=== PATIENT | male | born 1955 | race Caucasian/White ===

== ENCOUNTER → 2016-12-11 | Outpatient (CLI) | payer OTHER, MEDICAID | LOC: FIMAGING 14:46 | PROVIDERS: ATTEND Physician Assistant | DX: Z09 Encounter for follow-up examination after completed treatment for conditions other than malignant neoplasm (principal); Z98.1 Arthrodesis status ==

== ENCOUNTER → 2017-01-29 | Outpatient (CLI) | payer OTHER, MEDICAID | LOC: FLAB 13:09 | PROVIDERS: ATTEND Neurological Surgery | DX: M54.5 Low back pain (principal); K59.00 Constipation, unspecified; Z98.1 Arthrodesis status ==

== ENCOUNTER → 2017-02-07 | Outpatient (CLI) | payer OTHER, MEDICAID | LOC: FIMAGING 19:51 | PROVIDERS: ATTEND Neurological Surgery | DX: M43.16 Spondylolisthesis, lumbar region (principal); Z98.1 Arthrodesis status ==

== ENCOUNTER → 2017-03-20 | Outpatient (CLI) | payer OTHER, MEDICAID | LOC: FIMAGING 11:08 | PROVIDERS: ATTEND Physician Assistant | DX: M54.5 Low back pain (principal); Z98.1 Arthrodesis status; N20.0 Calculus of kidney ==

== ENCOUNTER → 2017-04-17 | Outpatient (CLI) | payer OTHER, MEDICAID | LOC: FIMAGING 13:00 | PROVIDERS: ATTEND Specialist | DX: N20.0 Calculus of kidney (principal); K59.00 Constipation, unspecified; Z90.49 Acquired absence of other specified parts of digestive tract; Z98.1 Arthrodesis status ==

== ENCOUNTER → 2017-04-23 | Outpatient (CLI) | payer OTHER, MEDICAID ==
[~2017-04-23] MED LIST: ceFAZolin 2 GM/DEXTROSE 100 ML IV ONE
--- NOTE | 2017-04-23 13:01 | PDHPUP ---
History & Physical Update H&P update statement: This history and physical update is based on an assessment of the patient which was completed after admission or registration (within 24 hours), but prior to the surgery/procedure. H&P update: H&P reviewed & patient examined, no change in patient's condition since H&P completed
== END ==
LOC: FIMAGING 09:40
PROVIDERS: ATTEND Specialist
DX: N20.0 Calculus of kidney (principal); K59.00 Constipation, unspecified

== ENCOUNTER → 2017-04-24 | Day surgery (SDC) | payer OTHER, MEDICAID ==
--- NOTE | 2017-04-23 16:16 | GHP ---
[f rep st] PREOP HISTORY AND PHYSICAL ADMISSION DIAGNOSES: Right-sided ureteral calculus and nephrolithiasis, left- sided nephrolithiasis, left-sided flank pain, abdominal. HISTORY OF PRESENT ILLNESS: This is a 60-year-old gentleman who has had a history of stones. At the present time, he is admitted for right ureteroscopy for a right ureteral calculus and renal stones noted, and possible left ureteroscopy if there is a stone noted on retrograde. He had a CT scan in February of 2017, showed a possible UVJ stone, bilateral renal stones, and an 8 mm right mid pole stone with Hounsfield unit of 854. PAST MEDICAL HISTORY: Aortic aneurysm, bone loss, degenerative joint disease, deep venous thrombosis, gastric reflux, HIV positive, hypergonadism, hyperlipidemia, nephrolithiasis, renal cell tumor, osteoporosis, migraines, lymphadenopathy, pyelonephritis, vertebral injury, urinary retention. PAST SURGICAL HISTORY: Angioplasty, appendectomy, colon surgery, cyst removal, gallbladder, knee, lipoma, partial nephrectomy, polyneuropathy, tonsillectomy, and tympanoplasty. MEDICATIONS: Include Androderm, Epzicom, Exalgo, Flomax, , Lidoderm patch, Lyrica, oxycodone. ALLERGIES: Demerol, gabapentin, meperidine. FAMILY HISTORY: Heart disease. SOCIAL HISTORY: Nondrinker, nonsmoker. . REVIEW OF SYSTEMS: Negative cardiac, respiratory, GI. PHYSICAL EXAMINATION: VITAL SIGNS: Stable. CHEST: Clear. HEART: Regular rate and rhythm. ABDOMEN: Normal. No organomegaly, rebound, or guarding. EXTREMITIES: Lower extremities are normal. PLAN: He is admitted for the above procedures. /[id number]/MODL MTDD
[~2017-04-24] MED LIST changes: +ALBUTEROL 3 ML DEYVIAL IH PRN; +HYDROmorphONE/DILAUDID 1 MG/ML SYR IVP PRN; +LR 1,000 ML IV ONE; +MIDAZOLAM 2 MG/2 ML VIAL IVP ONE; +NALOXONE HCL 0.4 MG/ML INJ IVP PRN; +ONDANSETRON 4 MG/2 ML VIAL IVP PRN; +OXYCODONE/APAP 5/325 TAB PO PRN; +PROMETHAZINE HCL 25 MG/ML INJ IVP PRN; +PROPOFOL 200 MG/20 ML VIAL ONE; +fentaNYL 100 MCG/2 ML INJ ONE
--- NOTE | 2017-04-24 12:49 | PDANEPAE ---
ANE History of Present Illness ureteral stone ANE Past Medical History - Cardiovascular History Hx Hypertension: No Hx Arrhythmias: No Hx Chest Pain: No Hx Coronary Artery / Peripheral Vascular Disease: No Hx CHF / Valvular Disease: No Hx Palpitations: No Cardiovascular History Comment: aortic aneurysm-4.3 cm - Pulmonary History Hx COPD: No Hx Asthma/Reactive Airway Disease: No Hx Recent Upper Respiratory Infection: No Hx Oxygen in Use at Home: Yes O2 in Use at Home (L/minute): 2-3l at noc Hx Sleep Apnea: Yes Sleep Apnea Screening Result - Last Documented: Positive Pulmonary History Comment: garfield positive - Neurologic History Hx Cerebrovascular Accident: No Hx Seizures: No Hx Dementia: No Neurologic History Comment: traumatic brain injury x 4. migranes. polyneuropathy-mid calf-feet. back injury c2-7, L 3-4-5 - Endocrine History Hx Diabetes: No - Renal History Hx Renal Disorders: Yes Renal History Comment: kidney cancer. hx of kidney stones - Liver History Hx Hepatic Disorders: No - Neurological & Psychiatric Hx Hx Neurological and Psychiatric Disorders: Yes Neurological / Psychiatric History Comment: anxiety - Cancer History Hx Cancer: Yes Cancer History Comment: kidney cancer, partial nephrectomy - Congenital Disorder History Hx Congenital Disorders: No - GI History Hx Gastrointestinal Disorders: No Gastrointestinal History Comment: colon polyp - Other Health History Other Health History: wears glasses. hx of falls - Chronic Pain History Chronic Pain: No - Surgical History Prior Surgeries: 10/09/16 l4-5, s1 TLIF with Dr. Aragon. epidural injection x4 lumbar & 2 cervical. partial nephrectomy. bilat knee arthroscopy. cholecystectomy. appendectomy. T&A. pilonidal cystectomy. cauldal rectal surgery ANE Review of Systems - Exercise capacity METS (RN): 4 METS ANE Patient History - Allergies Allergies/Adverse Reactions: meperidine HCl [From Demerol] Allergy (Intermediate, Verified 09/10/16 14:25) Vomiting adhesive tape [Adhesive Tape] Allergy (Verified 09/10/16 14:25) BLISTERS Tegaderm Allergy (Intermediate, Uncoded 08/05/16 14:54) Blisters - Home Medications Home Medications: Abacavir Sulfate/Lamivudine [Epzicom Tablet] 1 each PO DAILY 09/05/16 [Last Taken 10/09/16 07:30] Atorvastatin Calcium [Lipitor 10 mg (*)] 10 mg PO DAILY 09/05/16 [Last Taken ] Cyclobenzaprine [Flexeril 10 MG (*)] 10 - 20 mg PO DAILY PRN 09/05/16 [Last Taken 10/09/16 07:30] Diazepam 5 mg PO DAILY 09/05/16 [Last Taken 10/09/16] Gabapentin [Neurontin 300 MG (*)] 900 mg PO HS 09/05/16 [Last Taken 10/08/16 22: 00] Gabapentin [Neurontin] 600 mg PO BID@08,12 09/05/16 [Last Taken 10/09/16 07:30] Raltegravir [Isentress] 400 mg PO BID 09/05/16 [Last Taken 10/09/16 07:30] Tamsulosin HCl [Flomax 0.4 MG (*)] 0.4 mg PO DAILY 09/05/16 [Last Taken 07:30] methYLPHENIDATE HCL [Ritalin 10mg (*)] 10 mg PO DAILY 09/05/16 [Last Taken 10/07] - NPO status NPO Since - Liquids (Date): 04/23/17 NPO Since - Liquids (Time): 01:00 NPO Since - Solids (Date): 04/23/17 NPO Since - Solids (Time): 01:00 - Anes Hx Anes Hx: no prior problems - Smoking Hx Smoking Status: Never smoked - Family Anes Hx Family Hx Anesthesia Complications: none known ANE Labs/Vital Signs - Vital Signs Blood Pressure: 120/87 Heart Rate: 99 Respiratory Rate: 18 O2 Sat (%): 89 Height: 187.96 cm Weight: 102.512 kg ANE Physical Exam - Airway Neck exam: FROM, decreased ROM Mallampati Score: Class 1 Mouth exam: normal dental/mouth exam - Pulmonary Pulmonary: no respiratory distress - Cardiovascular Cardiovascular: regular rate and rhythym - ASA Status ASA Status: III ANE Anesthesia Plan Anesthesia Plan: general endotracheal anesthesia
--- NOTE | 2017-04-24 14:24 | POSTOPPROG ---
Post Op Note Date of Operation: 04/24/17 Surgeon: Brenden Arroyo Anesthesia: LMA Pre-op Diagnosis: rt ureteral stone, rt nephrolithiasis, left nephrolithiasis Post-op Diagnosis: same--DICTATED Indication: STONES Procedure: rt ureteroscopy ureteral stone, rt ureteroscopy renal stone, left ureterosc Findings: bilateral stones Inf/Abcess present in the surg proc area at time of surgery?: No EBL: Minimal Complications: none Drains: Other (bilateral stents)
--- NOTE | 2017-04-24 14:45 | POSTANESTH ---
Post Anesthetic Evaluation Cardiovascular Status: Normal, Stable Respiratory Status: Normal, Stable Level of Consciousness/Mental Status: Can Participate in Eval Pain Control: Adequate, Prn Tx Ordered Nausea/Vomiting Control: Adequate, Prn Tx Ordered Complications Possibly Related to Anesthesia: None Noted
[2017-04-24] MEDS: fentaNYL 100 MCG/2 ML INJ IVP PRN ×2 (15:15→15:31)
--- NOTE | 2017-04-24 15:19 | GOP ---
[f rep st] OPERATIVE REPORT DATE OF OPERATION: SURGEON: Brenden Arroyo MD PREOPERATIVE DIAGNOSIS: Right ureterolithiasis, right nephrolithiasis, left ureteral pain and left nephrolithiasis. POSTOPERATIVE DIAGNOSIS: PROCEDURE PERFORMED: Ureteroscopy with removal of right ureteral stone, ureteroscopy with laser lit hotripsy of right nephrolithiasis and laser lithotripsy ureteroscopically of left nephrolithiasis an d bilateral stent placement. Fluoroscopy was utilized with interpretation. FINDINGS: DESCRIPTION OF PROCEDURE: This gentleman underwent general anesthesia, prepped and draped in normal sterile fashion in dorsal lithotomy position. Urethra normal. Prostate normal. Bladder had no tao or, stones, or foreign bodies or diverticula. The retrograde revealed a distal ureteral stone and t hen the right lower pole calyceal stone, and I was able to pass a guidewire up beyond the stone and then extracted ureteroscopically the distal ureteral fragment. At that point, with the ureteral acc ess sheath, passed that up so I could pass the flexible scope up to the renal pelvis. He had nephro calcinosis in the renal papilla but he had 1 large stone in the lower pole calyx; it was fragmented and dusted. Because of the position, I could not really grasp any of the fragments to remove, so I p laced a 4.7 multi-length stent that curled in the renal pelvis and curled in the bladder. On extrac tion of the scope from the ureter and the renal pelvis, there was no perforation or damage to the ur eter. Then, at that point, the left retrograde ureteral pyelogram revealed left nephrolithiasis and it appeared there was no obvious ureteral stone, even though he was complaining of pain on that naomi e. So then I placed the ureteral access sheath over a 0.035 guidewire. Visualization revealed a st one in the left lower pole and he had some nephrocalcinosis in the renal papilla on the left side an d then the Holmium laser fragmented the stone into multiple pieces. The same thing as on the other side, could not really grasp the stones to extract them with a basket because of the position. At th at point, a 4.7 multi-length stent was curled in the renal pelvis, curled in the bladder. Bladder w as visualized and drained of all urine. Uro-Jet placed in the urethra and [place] catheter placed. He will have them pull his catheter and he will be discharged home to see me in the office in approxim ately 1 week for stent removal. /[id number]/MODL
[2017-04-24 16:38] VITALS: PULSE 85; TEMP 97.9
[2017-04-24 16:40] VITALS: BP 149/84; RESP 16; O2SAT 96
== END | disposition home or self-care (01) ==
LOC: FSGY 11:30
PROVIDERS: ATTEND Specialist
DX: N20.1 Calculus of ureter (principal); N20.0 Calculus of kidney; K21.9 Gastro-esophageal reflux disease without esophagitis; E78.5 Hyperlipidemia, unspecified; M81.0 Age-related osteoporosis without current pathological fracture; Z21 Asymptomatic human immunodeficiency virus [HIV] infection status
CPT/HCPCS: 52352; 52356; 76001; C1758; C1769; C1894; C2625; J0690; J2704; J3010

== ENCOUNTER 2017-04-25 02:45 | Emergency (ER) | payer OTHER, MEDICAID ==
[2017-04-25] MEDS ORDERED: LIDOCAINE 2% JELLY 20 ML (UROJECT) ONE (03:31)
--- NOTE | 2017-04-25 04:12 | EDPHY ---
H & P Stated Complaint: urinary retention post op Time Seen by Provider: 04/25/17 03:06 HPI/ROS: Chief Complaint: Urinary retention HPI: 61-year-old male who is status post ureteral stent placement for renal calculi yesterday. Patient states that he is able to urinate small amount after the procedure and once again but has been unable to urinate since. He attempted to place a 16 [place] catheter himself unsuccessfully. Is having worsening discomfort and difficulty urinating. Denies any fevers or chills. Some nausea no vomiting. ROS: 10 point Review of Systems is negative except as noted in the HPI. PMH: HIV, viral load undetectable Renal cancer status post resection, Lumbar spine fusion Renal calculi Social History: No smoking, no alcohol, no recreational drug use Family History: non-contributory Physical Exam: Gen: Awake, Alert, uncomfortable appearing HEENT: Nose: no rhinorrhea Eyes: PERRLA, EOMI Mouth: Moist mucosa Neck: Supple, no JVD Chest: No distress Heart: Normal pulses Abd: Soft, moderate lower abdominal tenderness, no guarding Ext: no edema, non-tender Skin: no rash Neuro: CN II-XII intact, Sensation grossly intact, Strength 5/5 in bilateral upper and lower extremities - Personal History Tetanus Vaccine Date: 2007 - Medical/Surgical History Hx Asthma: No Hx Chronic Respiratory Disease: No Hx Diabetes: No Hx Cardiac Disease: No Hx Renal Disease: No Hx Cirrhosis: No Hx Alcoholism: No Hx HIV/AIDS: Yes Hx Splenectomy or Spleen Trauma: No Other PMH: HIV-positive, chronic low back pain, obstructive sleep apnea, fibromyalgia, 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, osteoporosis, peripheral neuropathy, degenerative arthritis, hyperlipidemia, renal cell carcinoma status post partial nephrectomy, abdominal aortic aneurysm, multiple TBIs, MAYRA - Social History Smoking Status: Never smoked Constitutional: Initial Vital Signs Heart Rate 102 H 04/25/17 02:52 Respiratory Rate 20 04/25/17 02:52 Blood Pressure 132/67 H 04/25/17 02:52 O2 Sat (%) 91 L 04/25/17 02:52 O2 Delivery Mode Room Air Allergies/Adverse Reactions: meperidine HCl [From Demerol] Allergy (Intermediate, Verified 09/10/16 14:25) Vomiting adhesive tape [Adhesive Tape] Allergy (Verified 09/10/16 14:25) BLISTERS Tegaderm Allergy (Intermediate, Uncoded 08/05/16 14:54) Blisters Home Medications: Medication Instructions Recorded Abacavir Sulfate/Lamivudine 1 each PO DAILY 09/05/16 [Epzicom Tablet] Atorvastatin Calcium [Lipitor 10 10 mg PO DAILY 09/05/16 mg (*)] Cyclobenzaprine [Flexeril 10 MG 10 - 20 mg PO DAILY PRN 09/05/16 (*)] Diazepam 5 mg PO DAILY 09/05/16 Gabapentin [Neurontin 300 MG (*)] 900 mg PO HS 09/05/16 Gabapentin [Neurontin] 600 mg PO BID@08,12 09/05/16 Raltegravir [Isentress] 400 mg PO BID 09/05/16 Tamsulosin HCl [Flomax 0.4 MG (*)] 0.4 mg PO DAILY 09/05/16 methYLPHENIDATE HCL [Ritalin 10mg 10 mg PO DAILY 09/05/16 (*)] HYDROcodone/APAP 10/325 [[place] 1 - 2 tab PO Q6HRS PRN #90 tab 10/13/16 10/325 (*)] HYDROmorphone HCL [Exalgo] 32 mg PO DAILY #0 tab.er.24h 10/13/16 oxyCODONE HCL [Roxicodone] 30 mg PO Q3HRS PRN #90 tablet 10/13/16 Sennosides/Docusate Sodium 1 - 2 tab PO BID #30 tab 10/14/16 [Senokot-S] Isentress 04/25/17 Medical Decision Making ED Course/Re-evaluation: Patient had [place] catheter placed without difficulty by nursing staff. He has had 1500 mL of urine out. He is feeling significantly improved. Patient will be discharged with plans to follow up with [facility] later today. He will go home with a [place] catheter in place with a leg bag. Departure - Departure Disposition: Home, Routine, Self-Care Clinical Impression: Urine retention Condition: Good Instructions: Urinary Retention in Men (ED), [place] Catheter Placement and Care (ED) Additional Instructions: Follow up with your urologist at [facility] later today. Return to the emergency depart for increasing pain, fevers, chills, nausea, vomiting, or any other concerns. Referrals: Kirstin Tirado MD [Primary Care Provider] - As per Instructions
[2017-04-25 04:27] LABS: COLOR YELLOW; LEUKOCYTE ESTERASE,URINE 2+ (NEGATIVE); NITRITE,URINE NEGATIVE (NEGATIVE)
[2017-04-25 04:32] LABS: BACTERIA 1+ /hpf (NONE SEEN); MUCUS TRACE /lpf (NONE-1+); RBC,URINE 50-182 /hpf (0-3); WBC,URINE 25-50 /hpf (0-3)
[2017-04-25 04:53] VITALS: BP 122/78; PULSE 101; RESP 18; TEMP 98.2; O2SAT 92
[2017-04-30 17:36] LABS: SOURCE OF STONE STONE
[2017-04-30 17:38] LABS: NIDUS NOT OBSERVED
== END 2017-04-25 04:54 | disposition home or self-care (01) ==
PROC: 0T9B70Z Drainage of Bladder with Drainage Device, Via Natural or Artificial Opening (ICD-10-PCS; principal; 2017-04-25)
DX: R33.9 Retention of urine, unspecified (principal); B20 Human immunodeficiency virus [HIV] disease; Z85.528 Personal history of other malignant neoplasm of kidney
CPT/HCPCS: 82365-90

== ENCOUNTER → 2017-05-06 | Outpatient (CLI) | payer OTHER, MEDICAID | LOC: FIMAGING 16:24 | PROVIDERS: ATTEND Specialist | DX: Z87.442 Personal history of urinary calculi (principal); Z96.0 Presence of urogenital implants ==

== ENCOUNTER 2017-08-25 15:39 | Emergency (ER) | payer OTHER, MEDICAID ==
[2017-08-25 16:00] VITALS: RESP 18
--- NOTE | 2017-08-25 16:34 | EDPHY ---
H & P Stated Complaint: MULTIPLE COMPLAINTS- SANTOS, NAUSEA, VOMITTING- HIV + Time Seen by Provider: 08/25/17 16:33 HPI/ROS: CHIEF COMPLAINT: Several weeks of intermittent vomiting and diarrhea, mechanical fall earlier today resulting in chest trauma HISTORY OF PRESENT ILLNESS: Patient reports a several week history of intermittent vomiting and diarrhea. He has a history of HIV and a undetectable viral load. The patient is on anti-retroviral medications. The patient reportedly has had unremarkable lab testing, urinalysis and a stool culture performed by his primary care provider within the past week. The patient fell in his kitchen today striking his chest wall. He complains of right-sided anterior chest wall pain. The patient did not strike his head or lose consciousness. The patient denies any acute neurologic symptoms. The patient does have a history of chronic neuropathy. He is on gabapentin for this condition. The patient denies complaints of fever. The patient denies any recent medication changes. The patient reports moderate right anterior chest wall pain. REVIEW OF SYSTEMS: A comprehensive 10 point review of systems is otherwise negative aside from elements mentioned in the history of present illness. 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, osteoporosis, peripheral neuropathy, degenerative arthritis, hyperlipidemia, renal cell carcinoma status post partial nephrectomy, abdominal aortic aneurysm, multiple TBIs, MAYRA - Social History Smoking Status: Never smoked - Physical Exam Exam: General Appearance: Alert, no distress Head: Atraumatic Eyes: Pupils equal, round, reactive ENT, Mouth: No hemotympanum, no oral trauma Neck: Nontender, trachea midline Respiratory: Tenderness to palpation right anterior chest wall, no palpable deformity, no subcutaneous emphysema Cardiovascular: Regular rate and rhythm Abdomen: Abdomen is soft and nontender, pelvis stable Skin: No lacerations, No abrasion Back: No midline T/L/S pain Extremities: Nontender, full range of motion Neurological: A&Ox3, normal motor function, normal sensory exam Constitutional: Initial Vital Signs Temperature (C) 36.7 C 08/25/17 15:57 Heart Rate 85 08/25/17 15:57 Respiratory Rate 18 08/25/17 15:57 Blood Pressure 105/71 08/25/17 15:57 O2 Sat (%) 96 08/25/17 15:57 O2 Delivery Mode Room Air Allergies/Adverse Reactions: meperidine HCl [From Demerol] Allergy (Intermediate, Verified 08/25/17 16:00) Vomiting adhesive tape [Adhesive Tape] Allergy (Verified 08/25/17 16:00) BLISTERS Tegaderm Allergy (Intermediate, Uncoded 08/25/17 16:00) Blisters Home Medications: Medication Instructions Recorded Abacavir Sulfate/Lamivudine 1 each PO DAILY 09/05/16 [Epzicom Tablet] Atorvastatin Calcium [Lipitor 10 10 mg PO DAILY 09/05/16 mg (*)] Cyclobenzaprine [Flexeril 10 MG 10 - 20 mg PO DAILY PRN 09/05/16 (*)] Gabapentin [Neurontin 300 MG (*)] 900 mg PO HS 09/05/16 Gabapentin [Neurontin] 600 mg PO BID@08,12 09/05/16 Raltegravir [Isentress] 400 mg PO BID 09/05/16 Tamsulosin HCl [Flomax 0.4 MG (*)] 0.4 mg PO DAILY 09/05/16 methYLPHENIDATE HCL [Ritalin 10mg 10 mg PO DAILY 09/05/16 (*)] Sennosides/Docusate Sodium 1 - 2 tab PO BID #30 tab 10/14/16 [Senokot-S] Isentress 04/25/17 Lidocaine 5% [Lidoderm 5% Patch 1 ea TD DAILY #12 patch 08/25/17 (*)] oxyCODONE IR [Oxycodone Ir (*)] 5 - 10 mg PO Q6 PRN #12 tab 08/25/17 Medical Decision Making - Diagnostics Imaging Results: Imaging Impressions Chest X-Ray 08/25/17 16:56 Impression: Nothing acute identified. ED Course/Re-evaluation: ER course I reviewed the results of the patient's stool culture and laboratory studies performed earlier in the week. The patient had a negative stool culture an unremarkable laboratory studies. His urinalysis demonstrated no pyuria or hematuria. The patient was taken for a chest x-ray here for evaluation of his chest wall pain which demonstrates no evidence of an obvious rib fracture, pneumothorax or hemothorax. The patient was hemodynamically stable in the emergency department. He has a normal neurologic exam. I do not feel that additional workup is indicated at this point time. The patient will be given a short course of oxycodone per his request for management of his chest wall contusion. The patient is also given a prescription for lidocaine patches. Differential Diagnosis: Differential diagnosis considered includes rib fracture, pneumothorax, hemothorax, metabolic abnormality, infectious diarrhea Departure - Departure Disposition: Home, Routine, Self-Care Clinical Impression: Chest wall contusion, Chronic diarrhea Condition: Good Instructions: Chronic Diarrhea (ED) Additional Instructions: 1. Please return to the emergency department for any worsening symptoms, chest pain or difficulty breathing. 2. Please use [place] as needed for pain not alleviated by Motrin. 3. Please follow up with your primary care provider. At this point time I see no indication to start a oral antibiotic based upon the results of your stool culture and blood work. Referrals: Kirstin Tirado MD [Primary Care Provider] - As per Instructions Prescriptions: Hydrocodone/APAP 5/325 [[place] 5/325] 1 - 2 each PO Q6 PRN #20 tab PRN Reason: for pain
[2017-08-25 18:06] VITALS: BP 97/56; PULSE 82; TEMP 97.9; O2SAT 93
== END 2017-08-25 18:54 | disposition home or self-care (01) ==
DX: S20.219A Contusion of unspecified front wall of thorax, initial encounter (principal); K52.9 Noninfective gastroenteritis and colitis, unspecified; B20 Human immunodeficiency virus [HIV] disease; Z85.528 Personal history of other malignant neoplasm of kidney; W01.198A Fall on same level from slipping, tripping and stumbling with subsequent striking against other object, initial encounter; Y92.000 Kitchen of unspecified non-institutional (private) residence as the place of occurrence of the external cause; Y99.8 Other external cause status

== ENCOUNTER 2017-08-31 20:55 | Inpatient (IN) | payer OTHER, MEDICAID ==
--- NOTE | 2017-08-31 21:03 | EDPHY ---
H & P Time Seen by Provider: 08/31/17 21:02 HPI/ROS: CHIEF COMPLAINT: Mechanical fall, right tibia pain and deformity HISTORY OF PRESENT ILLNESS: The patient presents to the ED after mechanical fall at home resulting in right tibial pain and deformity. The patient has a history of HIV. The patient has been struggling with an undiagnosed GI condition for the past several months. The patient was seen in the emergency department approximately 6 days ago after mechanical fall which resulted in a rib injury. He was discharged home at that point time with a short course of narcotic medications. The patient reports over the past several days he has been developing symptoms of dehydration at home. The patient went to stand up tonight when he experienced lightheadedness which resulted has fall. The patient had a twisting fall on his right leg. He did have a sensation of crepitus below the knee. He has been unable to weightbear since that time. The patient was brought to the emergency department via ambulance. The patient did not strike his head or lose consciousness. The patient denies headache or neck pain. The patient reports moderate to severe pain below his right knee. REVIEW OF SYSTEMS: A comprehensive 10 point review of systems is otherwise negative aside from elements mentioned in the history of present illness. Source: Patient Exam Limitations: No limitations - Personal History Tetanus Vaccine Date: 2007 - Medical/Surgical History Hx Asthma: No Hx Chronic Respiratory Disease: No Hx Diabetes: No Hx Cardiac Disease: No Hx Renal Disease: No Hx Cirrhosis: No Hx Alcoholism: No Hx HIV/AIDS: Yes Hx Splenectomy or Spleen Trauma: No Other PMH: HIV-positive, chronic low back pain, obstructive sleep apnea, fibromyalgia, 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, osteoporosis, peripheral neuropathy, degenerative arthritis, hyperlipidemia, renal cell carcinoma status post partial nephrectomy, abdominal aortic aneurysm, multiple TBIs, MAYRA - Social History Smoking Status: Never smoked - Physical Exam Exam: General Appearance: Alert, mild distress secondary to pain Head: Atraumatic Eyes: Pupils equal, round, reactive ENT, Mouth: Dry mucous membranes Neck: Nontender, trachea midline Respiratory: No chest wall tender, subcutaneous air, lungs clear bilaterally Cardiovascular: Regular rate and rhythm Abdomen: Abdomen is soft and nontender, pelvis stable Skin: No lacerations, No abrasion Back: No midline T/L/S pain Extremities: Tenderness to palpation, deformity noted in the right proximal tib -fib area. 2+ dorsalis pedis and posterior tibial pulses noted bilaterally Neurological: A&Ox3, normal motor function, normal sensory exam Constitutional: Initial Vital Signs Temperature (C) 36.5 C 08/31/17 21:10 Heart Rate 61 08/31/17 21:10 Respiratory Rate 18 08/31/17 21:10 Blood Pressure 136/82 H 08/31/17 21:10 O2 Sat (%) 100 08/31/17 21:10 O2 Delivery Mode Room Air Allergies/Adverse Reactions: meperidine HCl [From Demerol] Allergy (Intermediate, Verified 08/25/17 16:00) Vomiting adhesive tape [Adhesive Tape] Allergy (Verified 08/25/17 16:00) BLISTERS Tegaderm Allergy (Intermediate, Uncoded 08/25/17 16:00) Blisters Home Medications: Medication Instructions Recorded Abacavir Sulfate/Lamivudine 1 each PO DAILY 09/05/16 [Epzicom Tablet] Atorvastatin Calcium [Lipitor 10 10 mg PO DAILY 09/05/16 mg (*)] Cyclobenzaprine [Flexeril 10 MG 10 - 20 mg PO DAILY PRN 09/05/16 (*)] Gabapentin [Neurontin 300 MG (*)] 900 mg PO HS 09/05/16 Gabapentin [Neurontin] 600 mg PO BID@08,12 09/05/16 Raltegravir [Isentress] 400 mg PO BID 09/05/16 Tamsulosin HCl [Flomax 0.4 MG (*)] 0.4 mg PO DAILY 09/05/16 methYLPHENIDATE HCL [Ritalin 10mg 10 mg PO DAILY 09/05/16 (*)] Sennosides/Docusate Sodium 1 - 2 tab PO BID #30 tab 10/14/16 [Senokot-S] Isentress 04/25/17 Lidocaine 5% [Lidoderm 5% Patch 1 ea TD DAILY #12 patch 08/25/17 (*)] oxyCODONE IR [Oxycodone Ir (*)] 5 - 10 mg PO Q6 PRN #12 tab 08/25/17 Medical Decision Making - Diagnostics EKG Interpretation: EKG: Complete interpretation has been separately recorded in the [employer] archive. Summary impression: Sinus rhythm Imaging Results: Chest x-ray: Images reviewed by myself, negative for acute disease. Right tib-fib x-ray: Images reviewed by myself, complex tibial plateau fracture noted Left knee: Images reviewed by myself, negative for acute fracture ED Course/Re-evaluation: The patient presents to the ED with complaints of acute right leg pain following a mechanical fall at home. The patient also complains of left knee pain. The patient's symptoms were precipitated by a vasovagal episode and a history of increasing symptoms of dehydration over the past several days. The patient has not had any solid food DE today. His last oral intake was 9 hours prior to arrival at 1:00 p.m.. The patient was noted to be neurovascularly intact upon arrival. He had obvious pain and deformity to his right proximal tib-fib area. The patient was taken for a right tib-fib x-ray which demonstrates a complex tibial plateau fracture. Left knee x-ray demonstrates no evidence of an acute fracture by my interpretation. Chest x-ray demonstrates no evidence of acute disease by my interpretation. The patient received IV fentanyl morphine by paramedics prior to arrival. In the emergency department the patient received an additional half a mg of Dilaudid, 1 mg of Ativan and 50 mg of ketamine for management of his acute pain. The patient was placed in a knee immobilizer. Consultation was made with the hospitalist service at 10:30 p.m.. I spoke with Dr. Mckeon who will admit the patient Consultation was made with the orthopedic service at 10:30 p.m.. I spoke with Dr. Jeremy Fuentes from Orthopedic surgery who will evaluate the patient in consultation. Patient will be admitted to the hospital for further evaluation and management of his tibial plateau fracture. Patient is noted to have an elevated creatinine of 1.8 likely secondary to dehydration. 10:40 p.m.: The patient continues to be neurologically intact. He has a 2+ dorsalis pedis and posterior tibial pulse in the right leg. He has no clinical evidence of a compartment syndrome. A CT scan of the knee has been ordered for preoperative planning. Differential Diagnosis: Differential diagnosis considered includes knee fracture, dislocation, neurovascular injury, metabolic abnormality, dehydration, renal failure - Data Points Laboratory Results: Laboratory Results 08/31/17 21:00 08/31/17 21:00 08/31/17 08/31/17 08/31/17 21:00 21:00 21:00 WBC 7.44 10^3/uL 10^3/uL (3.80-9.50) RBC 5.17 10^6/uL 10^6/uL (4.40-6.38) Hgb 16.4 g/dL g/dL (13.7-17.5) Hct 46.8 % % (40.0-51.0) MCV 90.5 fL fL (81.5-99.8) MCH 31.7 pg pg (27.9-34.1) MCHC 35.0 g/dL g/dL (32.4-36.7) RDW 15.3 % H % (11.5-15.2) Plt Count 152 10^3/uL 10^3/uL (150-400) MPV 11.1 fL fL (8.7-11.7) Neut % (Auto) 45.2 % % (39.3-74.2) Lymph % (Auto) 45.4 % H % (15.0-45.0) [place] % (Auto) 7.4 % % (4.5-13.0) Eos % (Auto) 1.3 % % (0.6-7.6) Baso % (Auto) 0.4 % % (0.3-1.7) Nucleat RBC Rel Count 0.0 % % (0.0-0.2) Absolute Neuts (auto) 3.36 10^3/uL 10^3/uL (1.70-6.50) Absolute Lymphs (auto) 3.38 10^3/uL H 10^3/uL (1.00-3.00) Absolute Monos (auto) 0.55 10^3/uL 10^3/uL (0.30-0.80) Absolute Eos (auto) 0.10 10^3/uL 10^3/uL (0.03-0.40) Absolute Basos (auto) 0.03 10^3/uL 10^3/uL (0.02-0.10) Absolute Nucleated RBC 0.00 10^3/uL 10^3/uL (0-0.01) Immature Gran % 0.3 % % (0.0-1.1) Immature Gran # 0.02 10^3/uL 10^3/uL (0.00-0.10) PT 15.2 SEC H SEC (12.0-15.0) INR 1.20 H (0.83-1.16) APTT 24.7 SEC SEC (23.0-38.0) Sodium 140 mEq/L mEq/L (134-144) Potassium 4.7 mEq/L mEq/L (3.5-5.2) Chloride 103 mEq/L mEq/L (97-110) Carbon Dioxide 25 mEq/l mEq/l (22-31) Anion Gap 12 mEq/L mEq/L (8-16) BUN 24 mg/dL H mg/dL (7-23) Creatinine 1.8 mg/dL H mg/dL (0.7-1.3) Estimated GFR 39 Glucose 118 mg/dL H mg/dL (70-100) Calcium 9.4 mg/dL mg/dL (8.5-10.4) Medications Given: Discontinued Medications Gabapentin (Neurontin) 800 mg PO EDNOW ONE Stop: 08/31/17 22:31 Last Admin: 08/31/17 22:36 Dose: 800 mg Hydromorphone HCl (Dilaudid) 0.5 mg IVP EDNOW ONE Stop: 08/31/17 21:25 Last Admin: 08/31/17 21:26 Dose: 0.5 mg Sodium Chloride (Ns) 1,000 mls @ 0 mls/hr IV ONCE ONE; Wide Open PRN Reason: Protocol Stop: 08/31/17 21:07 Last Admin: 08/31/17 21:21 Dose: 1,000 mls Sodium Chloride (Ns) 1,000 mls @ 0 mls/hr IV ONCE ONE; Wide Open PRN Reason: Protocol Stop: 08/31/17 21:07 Last Admin: 08/31/17 22:04 Dose: 1,000 mls Ketamine HCl (Ketamine) 15 mg IVP EDNOW ONE Stop: 08/31/17 22:01 Last Admin: 08/31/17 22:00 Dose: 15 mg Lorazepam (Ativan Injection) 1 mg IVP EDNOW ONE Stop: 08/31/17 22:13 Last Admin: 08/31/17 22:21 Dose: 1 mg Departure - Departure Disposition: [facility] Inpatient Acute Clinical Impression: Tibial plateau fracture, right, Dehydration, Renal insufficiency, HIV (human immunodeficiency virus infection) Condition: Fair Referrals: Patient,NotPresent [Unknown] - As per Instructions
[2017-08-31] MEDS ORDERED: NS 1,000 ML IV ONE ×2 (21:06)
[2017-08-31 21:11] LABS: % IMMATURE GRANULYOCYTES 0.3 % (0.0-1.1); ABSOLUTE IMMATURE GRANULOCYTES 0.02 10^3/uL (0.00-0.10); ADD DIFF? NO; ADD MORPH? NO; ADD SCAN? NO; ATYPICAL LYMPHOCYTE FLAG 0 (0-99); FRAGMENT RBC FLAG 0 (0-99); HEMATOCRIT 46.8 % (40.0-51.0); HEMOGLOBIN 16.4 g/dL (13.7-17.5); LEFT SHIFT FLG 0 (0-99); LIPEMIA HEMOLYSIS FLAG 90 (0-99); MEAN CELL HEMOGLOBIN 31.7 pg (27.9-34.1); MEAN CELL VOLUME 90.5 fL (81.5-99.8); MEAN PLATELET VOLUME 11.1 fL (8.7-11.7); PLATELET CLUMPS FLAG 10 (0-99); PLATELET COUNT 152 10^3/uL (150-400); RED BLOOD CELL COUNT 5.17 10^6/uL (4.40-6.38); RED CELL DISTRIBUTION WIDTH 15.3 % (11.5-15.2)
[2017-08-31 21:20] LABS: APTT 24.7 SEC (23.0-38.0); INR 1.2 (0.83-1.16); PROTIME(PATIENT) 15.2 SEC (12.0-15.0)
[2017-08-31 21:24] LABS: ANION GAP 12 mEq/L (8-16); CALCIUM 9.4 mg/dL (8.5-10.4); CARBON DIOXIDE 25 mEq/l (22-31); CHLORIDE 103 mEq/L (97-110); CREATININE 1.8 mg/dL (0.7-1.3); GLOMERULAR FILTRATION RATE 39; GLUCOSE 118 mg/dL (70-100); POTASSIUM 4.7 mEq/L (3.5-5.2); SODIUM 140 mEq/L (134-144)
[2017-08-31] MEDS ORDERED: HYDROmorphONE/DILAUDID 1 MG/ML INJ IVP ONE ×2 (21:24→23:34)
[2017-08-31] MEDS ORDERED: KETAMINE 100 MG/10 ML SYR ONE (21:56)
[2017-08-31] MEDS ORDERED: KETAMINE 100 MG/10 ML SYR IVP ONE (22:00)
[2017-08-31] MEDS ORDERED: LORazepam 2 MG/ML INJ IVP ONE (22:12)
[2017-08-31] MEDS ORDERED: GABAPENTIN 300 MG CAP PO ONE (22:15)
--- NOTE | 2017-08-31 22:23 | CPEKG ---
Heart Rate: 53 RR Interval: 1132 P-R Interval: 152 QRSD Interval: 86 QT Interval: 452 QTC Interval: 425 P Albert: 55 QRS Albert: 69 T Wave Albert: 26 EKG Severity - ABNORMAL ECG - EKG Impression: SINUS RHYTHM Electronically Signed By: Alexis De Oliveira 31-Aug-2017 22:46:47
[2017-08-31] MEDS ORDERED: GABAPENTIN 400 MG CAP PO ONE (22:30)
[2017-08-31] MEDS ORDERED: fentaNYL 100 MCG/2 ML INJ IVP ONE (22:40)
[2017-09-01] MEDS ORDERED: PROMETHAZINE HCL 25 MG/ML INJ IVP PRN (00:42)
[2017-09-01] MEDS ORDERED: LORazepam 2 MG/ML INJ IVP PRN (00:42)
[2017-09-01] MEDS ORDERED: ACETAMINOPHEN 325 MG TAB PO PRN (00:42)
[2017-09-01] MEDS ORDERED: ONDANSETRON 4 MG/2 ML VIAL IVP PRN ×2 (00:42→13:09)
[2017-09-01] MEDS ORDERED: NS 1,000 ML IV SCH (00:45)
[2017-09-01] MEDS ORDERED: NALOXONE HCL 0.4 MG/ML INJ IVP PRN ×2 (00:46→13:09)
[2017-09-01] MEDS: HYDROmorphONE/DILAUDID 1 MG/ML INJ IVP PRN ×6 (02:11→18:53)
[2017-09-01] MEDS: HYDROmorphONE/DILAUDID 6 MG/30 ML PCA IV PRN ×3 (02:15→20:57)
[2017-09-01] MEDS: ABACAVIR SULFATE PO SCH ×2 (03:15→08:16)
[2017-09-01] MEDS: RALTEGRAVIR 400 MG TAB PO SCH ×3 (03:15→22:16)
[2017-09-01] MEDS: LAMIVUDINE PO SCH ×2 (03:15→08:16)
[2017-09-01 05:42] LABS: % IMMATURE GRANULYOCYTES 0.1 % (0.0-1.1); ABSOLUTE IMMATURE GRANULOCYTES 0.01 10^3/uL (0.00-0.10); ADD DIFF? NO; ADD MORPH? NO; ADD SCAN? NO; ATYPICAL LYMPHOCYTE FLAG 10 (0-99); FRAGMENT RBC FLAG 0 (0-99); HEMATOCRIT 39.2 % (40.0-51.0); HEMOGLOBIN 13.2 g/dL (13.7-17.5); LEFT SHIFT FLG 0 (0-99); LIPEMIA HEMOLYSIS FLAG 80 (0-99); MEAN CELL HEMOGLOBIN 30.9 pg (27.9-34.1); MEAN CELL HEMOGLOBIN CONCENTR. 33.7 g/dL (32.4-36.7); MEAN CELL VOLUME 91.8 fL (81.5-99.8); MEAN PLATELET VOLUME 10.7 fL (8.7-11.7); PLATELET CLUMPS FLAG 20 (0-99); PLATELET COUNT 99 10^3/uL (150-400); RED BLOOD CELL COUNT 4.27 10^6/uL (4.40-6.38); RED CELL DISTRIBUTION WIDTH 15.3 % (11.5-15.2)
[2017-09-01 05:50] LABS: INR 1.29 (0.83-1.16); PROTIME(PATIENT) 16.1 SEC (12.0-15.0)
[2017-09-01 05:51] LABS: APTT 26.7 SEC (23.0-38.0)
[2017-09-01 06:14] LABS: ALANINE AMINOTRANSFERASE 29 IU/L (21-72); ALKALINE PHOSPHATASE 65 IU/L (38-126); ANION GAP 10 mEq/L (8-16); ASPARTATE AMINOTRANSFERASE 14 IU/L (17-59); BILIRUBIN,TOTAL 0.7 mg/dL (0.1-1.4); CALCIUM 7.9 mg/dL (8.5-10.4); CARBON DIOXIDE 22 mEq/l (22-31); CHLORIDE 110 mEq/L (97-110); CREATININE 1.3 mg/dL (0.7-1.3); GLOMERULAR FILTRATION RATE 56; GLUCOSE 94 mg/dL (70-100); POTASSIUM 4.1 mEq/L (3.5-5.2); SODIUM 142 mEq/L (134-144)
--- NOTE | 2017-09-01 07:32 | GHP ---
[f rep st] HISTORY AND PHYSICAL DATE OF ADMISSION: 08/31/2017 CHIEF COMPLAINT: Right leg pain, fall. HISTORY OF PRESENT ILLNESS: This is a very pleasant 62-year-old gentleman with a past medical history significant for HIV, depression, BPH, renal cell carcinoma, status post partial nephrectomy, MAYRA, fibromyalgia, chronic back pain , and migraines, who presents to the emergency department today via EMS following a mechanical fall. The patient states that over the last 3 weeks, he has had worsening diarrhea with any oral intake, either liquid or solid. The patient states that he has been following with his PCP, and initial evaluation including stool studies, has all proven to be negative. Patient with a listed diagnosis of IBS in his chart and reports for the past 3 weeks, he has had these symptoms. He reports subjective fevers, chills, up to 101 Fahrenheit at home. The patient also reports episodes of nausea, vomiting, but none today. The patient states that due to his GI symptoms, he has not had any oral intake in almost 24-48 hours. Today, the patient states that he was in the kitchen. He went to turn around, felt lightheaded, and twisted his right leg. He had immediate pain and knew he had fractured something in his leg. He was not able to get up, and subsequently required paramedics to bring him to the emergency department. The patient with a history of multiple falls in the past and more recently was seen in the emergency department on 08/25/2017, again for a mechanical fall. The patient injured his right chest and was concerned for rib fractures. Imaging was negative for any evidence of fracture, and the patient was diagnosed with rib contusion. He was discharged home with supportive care. Patient reports he continues to have some rib pain, but no chest pressure, palpitations, or shortness of breath. Patient does have intermittent cough. Regarding his right foot, the patient reports a chronic history of neuropathy in both feet, usually left greater than right. He notices an increase in his neuropathic symptoms today following his fall, and reports that his feet normally are cold due to decreased circulation and the neuropathy. REVIEW OF SYSTEMS: Positive for subjective fevers, chills. No sweats. Patient reports measured temperatures of 99.6 to 101 Fahrenheit at home. SKIN: Patient denies any new rashes or sores. ENT: Patient reports postnasal drip that was yellow and clear drainage, and some hoarseness. EYES: Patient denies any acute changes in vision or ocular pain. CV: No chest pain or palpitations. RESPIRATORY: Positive for cough. No shortness of breath. The patient feels cough is due to postnasal drip. GI: The patient with some nausea , vomiting over the last several days and then on date of admission. He denies any melena, hematochezia, or hematemesis. The patient reports abdominal pain with any oral intake of food. : No dysuria or hematuria. Patient with history of BPH. MUSCULOSKELETAL: Patient reports significant right leg pain with limited control, on various pain medications given in the ER. He also has a history of chronic back pain, for which he was on chronic narcotics, and has been tapering down on his medications. NEUROLOGIC: Bilateral neuropathy in both feet, left greater than right. Chronic migraines with visual aura. None currently. PSYCH: Patient with history of depression, but he denies any SI or HI. He does get angry while driving. Remainder of review of systems negative, except as noted above. ALLERGIES: To meperidine, Tegaderm, and adhesive tape. HOME MEDICATIONS: 1. Oxy-IR 5-10 mg p.o. q.6 hours p.r.n. for pain, which patient reports he has tapered off completely over the last 5 months himself. 2. Methylphenidate 10 mg p.o. daily. 3. Tamsulosin 0.4 mg p.o. daily. 4. Senokot 1-2 tabs p.o. twice daily. 5. Raltegravir or Isentress 400 mg p.o. twice daily. 6. Lidocaine 5% patch 1 topically daily. 7. Gabapentin 900 mg p.o. at bedtime, 600 mg p.o. twice daily at 8:00 a.m. and noon. 8. Flexeril 10-20 mg p.o. daily p.r.n. 9. Atorvastatin 10 mg p.o. daily. 10. Abacavir sulfate/lamivudine or brand name is Epzicom 1 tab p.o. daily. PAST MEDICAL HISTORY: Significant for HIV, AAA, bipolar disorder, TBIs with history of multiple falls, chronic back pain, renal cell carcinoma, status post partial nephrectomy, IBS with chronic diarrhea, MAYRA on 2-3 L nasal cannula at bedtime, fibromyalgia, history of kidney stone, status post stenting, BPH, hyperlipidemia, osteoarthritis, osteoporosis, glaucoma, history of DVT in the right leg in 2016, history of latent TB, status post 9 months of oral treatment , migraine headaches with aura. PAST SURGICAL HISTORY: Significant for partial right nephrectomy, laparoscopic cholecystectomy, tonsillectomy, adenoidectomy, colonoscopy, bilateral knee arthroscopies, tympanostomy, pilonidal cyst extraction, kidney stents, lumbar 4- 5 fusion. FAMILY HISTORY: Significant for mother with cancer and COPD. Father is 90 with aneurysm and cancer. Patient is unsure what kind. The patient's 1 adult son is healthy, and he has 2 grandchildren who are also healthy. SOCIAL HISTORY: Patient is . He is disabled, was previously an EMT and respiratory therapist. He denies any tobacco or alcohol use. He does use marijuana p.r.n. CODE STATUS: Full. Patient desires his friend, Celsa Shook, to act as proxy if needed. PHYSICAL EXAMINATION: VITAL SIGNS: Upon arrival, blood pressure 136/82, heart rate 61, respiratory rate 18, O2 saturation is 100% on room air, temperature is 36.5. Vitals on the floor, blood pressure 93/60, heart rate 83, respiratory rate 16, O2 saturation 97% on 3 L by nasal cannula, temperature 36.6. GENERAL: The patient in no acute distress, but he does appear quite uncomfortable, fatigued, and acutely ill, but nontoxic. HEAD: Normocephalic, atraumatic. EYES: Extraocular muscles are intact. Pupils are decreased in size and symmetric without any scleral icterus or conjunctival injection. Not reactive to light. SKIN: Patient overall appears pale, slightly clammy, but no apparent rashes or sores. ENT: Mucous membranes appear dry. No oropharyngeal erythema. Dentition intact. NECK: Supple. Trachea midline. CV: Regular rate and rhythm. No murmurs, rubs, or gallops appreciated. RESPIRATORY: Lungs are clear to auscultation bilaterally. No wheezes, rales, or rhonchi. ABDOMEN: Positive bowel sounds. Soft, nontender to palpation. No rebound, guarding, or masses. : No Housotn in place. No suprapubic tenderness to palpation. EXTREMITIES: Right leg is elevated and positioned with ice packs. He is able to move his distal right lower extremity and he can move the left lower extremity without issues. His strength overall is slightly decreased at 4 to 5 out of 5 in upper and lower extremities, and right lower extremity exam is limited secondary to fracture. NEUROLOGIC: Cranial nerves 2 through 12 are intact and symmetric bilaterally. Patient is awake, alert, and oriented x4. PSYCH: Patient's affect is slightly flat, but he is pleasant and talkative. Thought process, content, and questions overall appear appropriate. LABORATORY STUDIES: 1. WBC is 7.4, H and H 16.4 and 46.8, MCV of 90.5, platelet count is 152. No bands. 2. PT is 15.2, INR is 1.2, PTT is 24.7. 3. Sodium is 140, potassium 4.7, chloride 103, CO2 of 25, anion gap 12, BUN 24 , creatinine 1.8, GFR is 39, glucose 118, calcium is 9.4. STUDIES: 1. EKG, reviewed myself, showing normal sinus bradycardia in the 50s. QTc is 425. No acute ST changes. Single small Q-wave in lead 3. IMAGING STUDIES: 1. Right tib-fib showing complex fracture, proximal to midshaft right tibia and fibula without angulation or displacement. No significant abnormality seen about the left knee. 2. Chest x-ray image report, reviewed myself, negative for any acute cardiopulmonary abnormalities. 3. Extremity CT: Complex nondisplaced fractures involving the proximal shaft of the right tib-fib. ASSESSMENT AND PLAN: Pleasant 62-year-old gentleman presents following a presyncopal episode at home with subsequent fall and twisting of right leg. 1. Right tibiofibular complex fracture. Orthopedics has been consulted from the emergency department. We will plan for patient to be n.p.o. pending their evaluation. Patient appears to be low moderate risk for any adverse cardiac surgical complications. No contraindications to proceed with any surgeries as deemed appropriate by orthopedics team. 2. Acute intractable right leg pain. Patient's pain has been difficult to control. He does have history of chronic pain with use previously of narcotics and more recently with muscle relaxers. The patient, in the emergency department, received gabapentin, ketamine, Dilaudid, fentanyl, Ativan, and continues to have significant amount of pain. We will place the patient on a CIVILIAN TECHNICIAN at this time and monitor vitals including blood pressure, oxygenation, and advised patient that lowering of dosing may be required for vital signs, even if pain is not adequately controlled. The patient is agreeable to this plan. 3. Acute kidney injury and dehydration. Patient with reported decreased oral intake, and this was likely prerenal in the setting of hypovolemia. Patient will continue to receive IV fluid hydration. We will plan to repeat BMP in the morning. 4. Mechanical fall with reported history of presyncope, likely prompted by patient's significant dehydration. We will continue to monitor with IV fluids. The patient without any cardiac complaints. 5. Head injury. The patient had initially reported no head injury to the emergency department provider. Currently, neurologic findings are consistent with patient's chronic complaints of bilateral lower extremity neuropathy. He denies any headache. No changes in vision currently. He does have a history of migraine headaches, but denies any head symptoms at this time, and we will plan to monitor closely. CT in the morning once patient's pain is stabilized. The patient denies any neck pain at this time. 6. Diarrhea. The patient reports comprehensive workup without any recent history of antibiotics or hospitalizations. The patient without any episodes of bowel movements since arrival, and we will continue with supportive care. 7. Obstructive sleep apnea. Continue oxygen at bedtime by nasal cannula. 8. Hyperlipidemia. Resume statin after patient is stabilized in setting of acute fracture. We will monitor his CK. 9. Human immunodeficiency virus. We will plan to resume patient's home medications Isentress and Epzicom combinations. Patient did bring his home medications and will need to utilize patient's supply, as these are not on formulary. 10. Benign prostatic hypertrophy. Continue tamsulosin postoperatively. The patient's blood pressure is currently low normal. We will monitor. 11. Depression. The patient is not currently on any medications for depression. We will monitor closely and provide supportive care. 12. Abdominal aortic aneurysm. Further details of size, etc., are unknown. 13. Remote history of deep venous thrombosis in 2016. The patient will require anticoagulation postoperatively. The patient reports deep venous thrombosis developed after a fall. 14. Fibromyalgia. Continue gabapentin once diet is advanced. 15. History of migraines. Patient currently without symptoms. Normally, he takes sumatriptan. We will make this available as well. 16. History of chronic pain. The patient reports that he self-titrated off multiple narcotics, including Valium, Lyrica, trazodone, nortriptyline, amitriptyline, oxycodone, Dilaudid p.o., up to 8 mg daily. Patient currently on CIVILIAN TECHNICIAN and we will monitor patient's pain needs closely, but at this time, patient appears significantly uncomfortable and has a significant fracture that I feel warrants a CIVILIAN TECHNICIAN at this time. 17. He will be on continuous pulse oximetry while on IV narcotics. 18. Fluid, electrolytes, nutrition. Continue with aggressive IV fluid hydration in setting of acute kidney injury. Repeat BMP in the morning. Electrolyte replacement p.r.n. The patient will be n.p.o. pending Orthopedic recommendations in anticipation for possible surgical intervention tomorrow. 19. Prophylaxis. SCDs that are contraindicated at this time with the patient' s fracture. He is at higher risk for DVT with a previous history in 2016. Postoperatively, he will require anticoagulation and we will request Orthopedics ' input and recommendations postoperatively as far as timing. 20. Code status is full. Patient desires Celsa Gee to act as proxy if needed. DISPOSITION: Patient has been admitted to inpatient status. Patient with severe right tib-fib fracture. Pain is likely to be difficult to control preoperatively and postoperatively. The patient lives alone and without any supportive resources. Anticipate greater than 2 midnights' stay postoperatively for some acute rehab needs and evaluation for possible longer- term therapy. /[id number]/MODL MTDD
[2017-09-01] MEDS: LORazepam 2 MG/ML INJ IVP PRN ×3 (07:36→22:17)
[2017-09-01] MEDS ORDERED: SUMAtriptan 6 MG/0.5 ML VIAL SC PRN (08:37)
[2017-09-01] MEDS ORDERED: TAMSULOSIN HCL 0.4 MG CAP PO PRN (08:37)
[2017-09-01] MEDS ORDERED: POLYETHYLENE GLYCOL 3350 17 GM PKT PO PRN (08:37)
[2017-09-01] MEDS ORDERED: ONDANSETRON DISINTEGRATING 4 MG TAB PO PRN (08:37)
[2017-09-01] MEDS: ATORVASTATIN CALCIUM 10 MG TAB PO SCH (08:57)
[2017-09-01] MEDS: GABAPENTIN 400 MG CAP PO SCH ×3 (08:57→22:15)
[2017-09-01] MEDS: LIDOCAINE 5% 1 EA PATCH TD SCH (09:00)
--- NOTE | 2017-09-01 09:03 | PDMN ---
Medical Necessity Medical necessity: est los>2mn for presyncope, severe R tib-fib fx r/t fall, intractable RLE pain, ADIN, dehydration; admit for ortho consult, IVF,IV pain meds, acute rehab post op; multiple comorbid conditions, including HIV, chronic pain, bipolar, AAA, TBI's, hx multiple falls, DVT; per order and H&P
--- NOTE | 2017-09-01 09:29 | GCON ---
[f rep st] CONSULTATION ORTHOPEDIC CONSULTATION DATE OF CONSULTATION: 09/01/2017 REASON FOR CONSULTATION: Right lower extremity fracture. CHIEF COMPLAINT: Right leg pain and fall. HISTORY OF PRESENT ILLNESS: This is a 62-year-old male with past medical history significant for HIV , depression, BPH, renal cell carcinoma status post partial nephrectomy, MAYRA, fibromyalgia, chronic b ack pain, migraines, history of chronic pain management. He presented to the emergency department af ter a mechanical fall. States that over the last over 3 weeks he had worsening diarrhea with decreas ed p.o. intake, as well as frequent migraines. Yesterday evening he was standing at the sink and fel t his legs get weak and had dizziness. Next thing he says he remembers, he fell onto the floor direc tly onto his right sesay and tibia, felt immediate pain and noticed deformity. He was able to call pa ramedics from a phone on the counter. He notes some mild rib tenderness, but no shortness of breath. Does admit to subjective fevers up to 101 at home. Denies chest pain. Does have a chronic history of neuropathy in bilateral lower extremities, worse in the left compared to the right. REVIEW OF SYSTEMS: As per HPI, as well as no signs of dysuria, hematuria. ALLERGIES: Include meperidine, Tegaderm adhesive tape. MEDICATIONS: Include methylphenidate, tamsulosin, Senokot, Raltegravir (Isentress) 400 mg p.o. twice daily, lidocaine patch, gabapentin 900 mg at bedtime and 600 mg twice daily, Flexeril, atorvastatin, abacavir sulfate/lamivudine (Epzicom) 1 tab p.o. daily. PAST MEDICAL HISTORY: HIV, AAA, bipolar disorder, traumatic brain injuries with history of falls, ch ronic back pain, renal cell carcinoma status post partial nephrectomy, IBS with chronic diarrhea, MAYRA on 2-3 L nasal cannula at bedtime, fibromyalgia, history of kidney stones, status post stenting, BPH , hyperlipidemia, osteoarthritis, osteoporosis, glaucoma, history of DVT in the right lower extremity in 2016, history of latent TB status post 9 months of oral treatment, migraine headaches with aura. PAST SURGICAL HISTORY: Significant for right partial nephrectomy, laparoscopic cholecystectomy, tons illectomy, adenoidectomy, colonoscopy, bilateral knee arthroscopy, tympanostomy, pilonidal cyst extra ction, kidney cysts, lumbar fusion. FAMILY HISTORY: Significant for mother with cancer and COPD. Father with cancer and aneurysm. Katarzyna ent has 1 son who is healthy, 2 grandchildren who are healthy. SOCIAL HISTORY: He is , disabled. Denies tobacco, alcohol use. Does use marijuana as neede d. PHYSICAL EXAMINATION: VITAL SIGNS: Stable. GENERAL: The patient is in no acute distress. He was sleeping comfortably prior to examination. HEAD: Normocephalic, atraumatic. EYES: EOMI. SKIN: O eliza the affected area is intact. Right lower extremity does have some swelling; however, compartment s are soft. Sensation is intact to light touch from L4 to S1. He has palpable DP and PT pulse, bris k cap refill. Motor is intact to EHL, FHL, tibialis anterior, and gastrocsoleus complex, although it does increase pain in the proximal tibia. Skin was examined underneath the knee immobilizer. LABORATORY STUDIES: WBC 7.4, hemoglobin 16.4, platelets 152. INR 1.2. EKG shows sinus bradycardia. Imaging demonstrates a right proximal third tibial shaft and metaphyseal fracture without intra-artic ular extension. It is comminuted without angulation or significant displacement. ASSESSMENT AND PLAN: A 62-year-old male with multiple medical problems, with a right proximal third metaphyseal/shaft comminuted tibial fracture after a presyncopal episode at home. Recommend open red uction/internal fixation of the right tibia to allow for early range of motion of the knee and preven t stiffness, and increase function. Risks of the procedure were discussed with the patient, which in cludes the inherent risks of anesthesia, general risks of surgery including infection, bleeding, and damage to anatomic surrounding structures, possibility of symptomatic hardware, possibility of maluni on or nonunion. Patient understood and agreed, elected to proceed. Surgery has been scheduled for kraig wagner, September 01, 2017. All questions have been answered. /[id number]/MODL
[2017-09-01] MEDS ORDERED: PREGABALIN 150 MG CAP PO ONE (09:36)
[2017-09-01] MEDS ORDERED: ceFAZolin 2 GM/SWFI 2 GM/20 ML SYR IVP ONE (09:36)
--- NOTE | 2017-09-01 10:30 | PDANEPAE ---
ANE History of Present Illness 62 year old male w/ complex PMHx presents for ORIF vs ex-fix of tib-fib fracture. ANE Past Medical History - Cardiovascular History Hx Hypertension: No Hx Arrhythmias: No Hx Chest Pain: No Hx Coronary Artery / Peripheral Vascular Disease: No Hx CHF / Valvular Disease: No Hx Palpitations: No Cardiovascular History Comment: aortic aneurysm-4.3 cm - Pulmonary History Hx COPD: No Hx Asthma/Reactive Airway Disease: No Hx Recent Upper Respiratory Infection: No Hx Oxygen in Use at Home: Yes O2 in Use at Home (L/minute): 2 Hx Sleep Apnea: Yes Sleep Apnea Screening Result - Last Documented: Positive Pulmonary History Comment: 2L- 3L noc. POS MARYA - Neurologic History Hx Cerebrovascular Accident: No Hx Seizures: No Hx Dementia: No Neurologic History Comment: traumatic brain injury x 4. migranes. polyneuropathy-mid calf-feet. back injury c2-7, L 3-4-5 - Endocrine History Hx Diabetes: No Hypothyroid: No Hyperthyroid: No Obesity: no - Renal History Hx Renal Disorders: Yes Renal History Comment: kidney cancer- no problems now - Liver History Hx Hepatic Disorders: No - Neurological & Psychiatric Hx Hx Neurological and Psychiatric Disorders: Yes Neurological / Psychiatric History Comment: anxiety, bulging disc cervical and lumbar, spinal stenosis. sciatica L side - Cancer History Hx Cancer: Yes Cancer History Comment: kidney cancer, partial nephrectomy - Congenital Disorder History Hx Congenital Disorders: No - GI History GERD: no Hx Gastrointestinal Disorders: No Gastrointestinal History Comment: colon polyp - Other Health History Other Health History: recent fall 08/05/16 - Chronic Pain History Chronic Pain: Yes - Surgical History Prior Surgeries: epidural injection x4 lumbar & 2 cervical. partial nephrectomy. bilat knee arthroscopy. cholecystectomy. appendectomy, T&A, pilonidal cystectomy, cauldal rectal surgery ANE Review of Systems Review of systems is: negative Review of Systems: - Exercise capacity Exercise capacity: <4 METS ANE Patient History - Allergies Allergies/Adverse Reactions: meperidine HCl [From Demerol] Allergy (Intermediate, Verified 08/25/17 16:00) Vomiting adhesive tape [Adhesive Tape] Allergy (Verified 08/25/17 16:00) BLISTERS Tegaderm Allergy (Intermediate, Uncoded 08/25/17 16:00) Blisters - Home Medications Home medications: home medication list seen and reviewed Home Medications: Abacavir Sulfate/Lamivudine [Epzicom Tablet] 1 each PO DAILY 09/05/16 [Last Taken 10/09/16 07:30] Atorvastatin Calcium [Lipitor 10 mg (*)] 10 mg PO DAILY 09/05/16 [Last Taken 03/12] Cyclobenzaprine [Flexeril 10 MG (*)] 10 - 20 mg PO DAILY PRN 09/05/16 [Last Taken 08/31/17 14:00] Raltegravir [Isentress] 400 mg PO BID 09/05/16 [Last Taken 10/09/16 07:30] Tamsulosin HCl [Flomax 0.4 MG (*)] 0.4 mg PO DAILY PRN 09/05/16 [Last Taken 02/10] Gabapentin [Neurontin 400 MG (*)] 800 mg PO TID 09/01/17 [Last Taken 09/01/17 00 :00] Ondansetron Odt [Zofran Odt 4 mg (*)] 8 mg PO Q8HRS PRN 09/01/17 [Last Taken Unknown] Polyethylene Glycol 3350 [Miralax 17 gm (*)] 17 gm PO DAILY PRN 09/01/17 [Last Taken Unknown] SUMAtriptan [Imitrex Sc 6 MG Inj (RX)] 6 mg SQ BID PRN 09/01/17 [Last Taken 03/12] - NPO status NPO Status: no food or drink >8 hours NPO Since - Liquids (Date): 08/31/17 NPO Since - Liquids (Time): 00:00 - Anes Hx Anes Hx: no prior problems - Smoking Hx Smoking Status: Never smoked - Alcohol Use Alcohol Use: Rarely - Family Anes Hx Family Anes Hx: neg - N/A Family Hx Anesthesia Complications: none known ANE Labs/Vital Signs - Labs Result Diagrams: 09/01/17 05:31 09/01/17 05:31 - Vital Signs Vital Signs: reviewed preoperatively; see RN documention for details Blood Pressure: 94/66 Heart Rate: 94 Respiratory Rate: 18 O2 Sat (%): 94 Height: 187.96 cm Weight: 88.904 kg ANE Physical Exam - Airway Neck exam: FROM Mallampati Score: Class 2 Mouth image: 1 - Bridge 2 - Bridge 3 - Cap - Pulmonary Pulmonary: no respiratory distress - Cardiovascular Cardiovascular: regular rate and rhythym - ASA Status ASA Status: III ANE Anesthesia Plan Anesthesia Plan: general endotracheal anesthesia Total IV Anesthesia: No
[2017-09-01] MEDS ORDERED: BUPIVACAINE 0.5% 30 ML SDV ONE (10:48)
[2017-09-01] MEDS ORDERED: fentaNYL 100 MCG/2 ML INJ IVP ONE (11:28)
[2017-09-01] MEDS ORDERED: MIDAZOLAM 2 MG/2 ML VIAL IVP ONE (11:34)
[2017-09-01] MEDS ORDERED: fentaNYL 100 MCG/2 ML INJ ONE ×3 (11:39→15:28)
[2017-09-01] MEDS ORDERED: PROPOFOL 200 MG/20 ML VIAL ONE (11:39)
[2017-09-01] MEDS ORDERED: LIDOCAINE 2% 5 ML SDV ONE (11:41)
[2017-09-01] MEDS ORDERED: ROCURONIUM 50 MG/5 ML VIAL ONE (11:41)
[2017-09-01] MEDS ORDERED: DEXAMETHASONE 4 MG/ML VIAL ONE (11:50)
[2017-09-01] MEDS ORDERED: ONDANSETRON 4 MG/2 ML VIAL ONE (11:50)
[2017-09-01] MEDS ORDERED: NS 500 ML IV PRN (13:09)
--- NOTE | 2017-09-01 14:43 | HOSPPROG ---
Hospitalist Progress Note Assessment/Plan: #Right tib/fib fracture: ORIF today. Passive knee motion with PT. NWB for [address] Fuentes 7-10 days #acute pain: this will be issue at issue with h/o prior heavy opioid use. Cont [facility], but would wean off SAROJ. Try to manage without narcotics #Falls: due to dehydration. No arrhythmia on EKG. Hit head, but no focal findings, hold on CTH #HIV: CD4 579 11/12, undetectable viral load 02/2017 #Diarrhea: no recent travel. GI, UA panel negative 08/21 #ADIN: improved with IVFs #Thrombocytopenia: chronic. No active bleeding here #Depression: not on meds #MAYRA: oxygen at night #h/o RCC: s/p partial nephrectomy #AAA: pt reports 4cm. CTA 05/10 shows no e/o it. Will clarify with patient #Chronic medical problems: latent TB, s/p 9mnths tx, #Diet: regular #DVT ppx: start Lovenox tomorrow if platelets >100 Subjective: still c/o pain in right leg. No dizziness, slurred speech or focal weakness Objective: Vital Signs Temp Pulse Resp BP Pulse Ox 36.5 C 94 18 94/66 L 94 09/01/17 11:28 09/01/17 11:28 09/01/17 11:28 09/01/17 11:28 09/01/17 11:28 Laboratory Results 09/01/17 05:31 09/01/17 05:31 08/31/17 09/01/17 09/02/17 05:59 05:59 05:59 Intake Total 2800 6.2 Output Total 0 1000 Balance 2800 -993.8 PT 16.1 SEC (12.0-15.0) H 09/01/17 05:31 INR 1.29 (0.83-1.16) H 09/01/17 05:31 - Physical Exam Constitutional: uncomfortable Eyes: PERRL Ears, Nose, Mouth, Throat: moist mucous membranes Cardiovascular: no murmur, rub, or gallop Respiratory: no respiratory distress Gastrointestinal: normoactive bowel sounds, soft, non-tender abdomen, No no palpable masses, No tenderness Musculoskeletal: other (right leg in brace.) Neurologic: AAOx3, sensation intact bilaterally, CN II-XII Intact, No numbness, No facial droop Psychiatric: flat affect, agitated ICD10 Worksheet Patient Problems: Problems Problem Status Onset Dehydration Acute HIV (human immunodeficiency virus infection) Acute Renal insufficiency Acute Tibial plateau fracture, right Acute Renal mass Active Arthrodesis status Acute Lumbago Acute Lumbar radicular pain Acute TIA (transient ischemic attack) Acute
[2017-09-01] MEDS ORDERED: SUGAMMADEX SODIUM 200 MG/2 ML VIAL IVP ONE (14:44)
--- NOTE | 2017-09-01 15:21 | POSTOPPROG ---
Post Op Note Date of Operation: 09/01/17 Surgeon: Jeremy Fuentes Community Health Educator: Fredrick Santos Anesthesiologist: Elio Garcia Pre-op Diagnosis: R tib/fib fx Post-op Diagnosis: same Procedure: R tibia ORIF Findings: see dictation Inf/Abcess present in the surg proc area at time of surgery?: No EBL: 50-100 Complications: none
[2017-09-01] MEDS: fentaNYL 100 MCG/2 ML INJ IVP PRN ×2 (15:31→15:54)
[2017-09-01] MEDS ORDERED: HYDROmorphONE/DILAUDID 1 MG/ML INJ ONE ×3 (16:01→18:16)
[2017-09-01] MEDS ORDERED: LORazepam 2 MG/ML INJ ONE (16:45)
--- NOTE | 2017-09-01 20:04 | POSTANESTH ---
Post Anesthetic Evaluation Cardiovascular Status: Normal, Stable, Similar to Pre-Op Cond Respiratory Status: Normal, Stable, Similar to Pre-op Cond. Level of Consciousness/Mental Status: Can Participate in Eval, Alert and Oriented Pain Control: Adequate, Prn Tx Ordered Nausea/Vomiting Control: Adequate, Prn Tx Ordered Complications Possibly Related to Anesthesia: None Noted
[2017-09-01] MEDS: CYCLOBENZAPRINE 10 MG TAB PO PRN (20:21)
[2017-09-01] MEDS: ceFAZolin 2 GM/SWFI 2 GM/20 ML SYR IVP SCH (21:06)
[2017-09-01] MEDS ORDERED: ceFAZolin 2 GM/DEXTROSE 100 ML IV SCH (22:00)
[2017-09-01] MEDS ORDERED: traZODone 50 MG TAB PO ONE (22:15)
[2017-09-01] MEDS: PATCH REMOVAL 1 EA PATCH TD SCH (22:17)
--- NOTE | 2017-09-01 23:06 | GOP ---
[f rep st] OPERATIVE REPORT DATE OF OPERATION: 09/01/2017 SURGEON: Jeremy Fuentes MD PREOPERATIVE DIAGNOSIS: Right comminuted tibia/fibular fracture. POSTOPERATIVE DIAGNOSIS: Right comminuted tibia/fibular fracture. PROCEDURE PERFORMED: Right tibia open reduction and internal fixation. FINDINGS: SPECIMENS: None. INDICATIONS: This is a 62-year-old male with multiple medical problems who had a presyncopal episode at home and fell directly onto his right lower extremity, sustaining the right tibia-fibular injury. There was significant comminution. He was in severe pain. The patient was described the risks and benefits of operative versus nonoperative treatment and elected to proceed with surgery. DESCRIPTION OF PROCEDURE: The patient was seen in the preoperative holding area. The right lower ex tremity was identified and marked. The patient was then taken to the operating room, placed supine o n the operating table. All bony prominences were well padded. He was then induced under general ane sthesia. The right lower extremity was then carefully prepped and draped in the usual sterile fashio n, taking care to support the fracture during the process. An anterolateral approach to the proximal tibia was made. Esmarch was used the exsanguinate and tourniquet was inflated to 300 mmHg. The ski n was injected with 0.25% Marcaine without epinephrine. Sharp dissection was made through the subcut aneous tissue to the level of the tibialis anterior fascia. Bovie electrocautery was used to elevate the tibialis anterior from the lateral aspect of the tibia. The fracture site was identified and ir rigated. Open reduction was performed and confirmed under fluoroscopy. The 16-hole plate was slid d own along the lateral aspect of the tibia submuscular to the anterior tibialis. Plate position was c onfirmed under fluoroscopy and a cortical screw was placed into the mid shaft of the distal larger fr agment to help buttress the proximal more laterally displaced fragment. Next, a mixture of cortical and locking screws were placed into the proximal tibia above the fracture comminution. An additional cortical screw was placed through the plate through the larger fracture fragments. Next, a percutan eous technique was utilized to place 4 distal cortical screws which were all confirmed under fluorosc opy. Final x-rays were then taken. The wound was then copiously irrigated. Proximal portion of the tibialis anterior fascia was closed with 0 Vicryl. Distal portion was left open to account for any swelling in the compartment. Subcutaneous tissue was closed with 2-0 Vicryl and skin with 3-0 Monocr yl, Dermabond and Steri-Strips. Dressing consisted of 4 x 4's, ABDs, Webril and loosely wrapped Efraín wrap. Prior to any circumferential dressing, the tourniquet was taken down at 90 minutes. At the en d of the case, all surgical counts were correct. The patient then was extubated and taken to the rec overy room in stable condition. He did have sensation throughout the dorsum and first webspace of th e foot and had full motor function of EHL and FHL. IMPLANTS: Include Synthes 16-hole 3.5 mm locking plate and screws. TOURNIQUET TIME: 90 minutes. COMPLICATIONS: None. /[id number]/MODL
[2017-09-02] MEDS: ceFAZolin 2 GM/SWFI 2 GM/20 ML SYR IVP SCH (03:51)
[2017-09-02 06:54] LABS: HEMATOCRIT 34.6 % (40.0-51.0); HEMOGLOBIN 11.4 g/dL (13.7-17.5); MEAN CELL HEMOGLOBIN 30.8 pg (27.9-34.1); MEAN CELL HEMOGLOBIN CONCENTR. 32.9 g/dL (32.4-36.7); MEAN CELL VOLUME 93.5 fL (81.5-99.8); RED BLOOD CELL COUNT 3.7 10^6/uL (4.40-6.38); RED CELL DISTRIBUTION WIDTH 15.2 % (11.5-15.2)
[2017-09-02 06:58] LABS: ANION GAP 8 mEq/L (8-16); CARBON DIOXIDE 26 mEq/l (22-31); CHLORIDE 104 mEq/L (97-110); GLOMERULAR FILTRATION RATE > 60; GLUCOSE 116 mg/dL (70-100); POTASSIUM 3.9 mEq/L (3.5-5.2); SODIUM 138 mEq/L (134-144)
[2017-09-02] MEDS: LORazepam 2 MG/ML INJ IVP PRN (07:38)
[2017-09-02] MEDS: HYDROmorphONE/DILAUDID 1 MG/ML INJ IVP PRN ×3 (07:50→19:15)
[2017-09-02] MEDS: ATORVASTATIN CALCIUM 10 MG TAB PO SCH (08:50)
[2017-09-02] MEDS: GABAPENTIN 400 MG CAP PO SCH ×3 (08:50→21:08)
[2017-09-02] MEDS: ENOXAPARIN 40 MG/0.4 ML SYR SC SCH (08:50)
[2017-09-02] MEDS: LIDOCAINE 5% 1 EA PATCH TD SCH (08:51)
[2017-09-02] MEDS: RALTEGRAVIR 400 MG TAB PO SCH ×2 (08:52→21:08)
[2017-09-02] MEDS: LAMIVUDINE PO SCH (08:53)
[2017-09-02] MEDS: ABACAVIR SULFATE PO SCH (08:53)
--- NOTE | 2017-09-02 09:04 | HOSPPROG ---
Hospitalist Progress Note Assessment/Plan: #Right tib/fib fracture: s/p ORIF, POD #1. Passive knee motion with PT. NWB for [address] Fuentes 7-10 days #acute pain: note h/o prior heavy opioid use. Off SOLE ROUNDER. -will schedule tylenol, nsaids, prn oxy and IV dilaudid -try to d/c IV dilaudid tomorrow -need to set limits with opiates #Falls: due to dehydration, ?neuropathy a factor. No arrhythmia on EKG. Hit head , but no focal findings, hold on CTH #HIV: CD4 579 11/12, undetectable viral load 02/2017 #Diarrhea: no recent travel. GI, UA panel negative 08/21 #ADIN: improved with IVFs #Thrombocytopenia: chronic. No active bleeding here #Depression: not on meds #MAYRA: oxygen at night #h/o RCC: s/p partial nephrectomy #AAA: pt reports 4cm. CTA 05/10 shows no e/o it. Will clarify with patient #Chronic medical problems: latent TB, s/p 9mnths tx, #Diet: regular #DVT ppx: start Lovenox Subjective: Pt doing ok. Complains of pain in leg. No fevers/chills. He is Objective: Vital Signs Temp Pulse Resp BP Pulse Ox 36.7 C 96 19 91/53 L 93 09/02/17 07:00 09/02/17 07:00 09/02/17 07:00 09/02/17 07:00 09/02/17 07:00 Laboratory Results 09/02/17 04:17 09/02/17 04:17 09/01/17 09/02/17 09/03/17 05:59 05:59 05:59 Intake Total 2800 4534.2 250 Output Total 0 1600 Balance 2800 2934.2 250 PT 16.1 SEC (12.0-15.0) H 09/01/17 05:31 INR 1.29 (0.83-1.16) H 09/01/17 05:31 - Physical Exam Constitutional: no apparent distress Eyes: PERRL Ears, Nose, Mouth, Throat: moist mucous membranes Cardiovascular: regular rate and rhythym Respiratory: no respiratory distress, clear to auscultation Gastrointestinal: normoactive bowel sounds, soft, non-tender abdomen Skin: warm Musculoskeletal: other (RLE bandage c/d/i, distal sensation intact, extremity warm) Neurologic: AAOx3 Psychiatric: interacting appropriately ICD10 Worksheet Patient Problems: Problems Problem Status Onset Dehydration Acute HIV (human immunodeficiency virus infection) Acute Renal insufficiency Acute Tibial plateau fracture, right Acute Renal mass Active Arthrodesis status Acute Lumbago Acute Lumbar radicular pain Acute TIA (transient ischemic attack) Acute
[2017-09-02] MEDS ORDERED: traZODone 50 MG TAB PO PRN (09:07)
[2017-09-02] MEDS: oxyCODONE IR 5 MG TAB PO PRN ×4 (10:12→21:08)
[2017-09-02] MEDS: CYCLOBENZAPRINE 10 MG TAB PO PRN (10:13)
[2017-09-02] MEDS: ACETAMINOPHEN 500 MG TAB PO SCH ×2 (10:14→16:47)
[2017-09-02 12:57] LABS: HIV-1 RNA PCR < 1.00 copy/mL (<20)
--- NOTE | 2017-09-02 14:54 | ASMTCMCOM ---
CM Note CM Note Notes: Patient is POD #1 ORIF R tib/fib fracture. I spoke with him about discharge planning, he expressed frustration that he was "just out of the OR" and felt that people were rushing him to leave. He also said that the PT he worked with today recommended a SNF but that he has services at home and would like to increase those. Patient has HCBS through Medicaid, which includes 9 hours of GROMMET WORKER help/week (GROMMET WORKER is with the agency [employer] out of [place], [place]). I called his community case manager Karli Singleton ([phone]) to discuss increasing his services and left her a voicemail. CM will follow. Date Signed: 09/02/2017 02:54 PM Electronically Signed By:Narda Leach RN
[2017-09-02] MEDS ORDERED: NS 1,000 ML IV ONE (15:30)
[2017-09-02] MEDS: LORazepam 0.5 MG TAB PO PRN (16:46)
[2017-09-02] MEDS: PATCH REMOVAL 1 EA PATCH TD SCH (21:11)
--- NOTE | 2017-09-02 21:27 | SOAPPROG ---
[facility] Progress Note Assessment/Plan: Assessment: POD#1 s/p R Tibia ORIF - NWB to RLE x6 wks minimum - Up with assist - Passive knee/ankle ROM with PT, encourage active toe/ankle motion - Pain control per hospitalist service due to h/o addiction. Recommend Pain Management referral if possible - DVT prophylaxis. Lovenox 40 Daily x4wks. Pt has has h/o DVT and Coumadin use. - Dispo pending Plan: 09/02/17 21:23 Subjective: No acute events overnight. Pain was well controlled with Dilaudid BREAKFAST AND ROOM ATTENDANT. Having increasing pain with current oral regimen. Denies f/c/cp/sob/n/v. Feels neuropathy in RLE has worsened since surgery but denies area of complete numbness. Objective: Vital Signs Temp Pulse Resp BP Pulse Ox 36.8 C 70 19 105/69 90 L 09/02/17 20:00 09/02/17 20:00 09/02/17 20:00 09/02/17 20:00 09/02/17 20:00 Laboratory Results 09/02/17 04:17 09/02/17 04:17 09/01/17 09/02/17 09/03/17 05:59 05:59 05:59 Intake Total 2800 4534.2 1752 Output Total 0 1600 1150 Balance 2800 2934.2 602 PT 16.1 SEC (12.0-15.0) H 09/01/17 05:31 INR 1.29 (0.83-1.16) H 09/01/17 05:31 AAOx3 Easy non-labored breathing RLE dressing c/d/i compartments soft SILT L4-S1 Intact EHl/FHL. Pain with TA/GSC but intact 2+DP/PT - Time Spent With Patient Time Spent With Patient: 25mins ICD10 Worksheet Patient Problems: Problems Problem Status Onset Dehydration Acute HIV (human immunodeficiency virus infection) Acute Renal insufficiency Acute Tibial plateau fracture, right Acute Renal mass Active Arthrodesis status Acute Lumbago Acute Lumbar radicular pain Acute TIA (transient ischemic attack) Acute
[2017-09-03] MEDS: ACETAMINOPHEN 500 MG TAB PO SCH ×3 (01:09→17:29)
[2017-09-03] MEDS: oxyCODONE IR 5 MG TAB PO PRN ×5 (01:09→22:58)
[2017-09-03] MEDS: LORazepam 0.5 MG TAB PO PRN ×2 (01:15→15:17)
[2017-09-03] MEDS: HYDROmorphONE/DILAUDID 1 MG/ML INJ IVP PRN (03:54)
--- NOTE | 2017-09-03 08:14 | SOAPPROG ---
SOAP Progress Note Assessment/Plan: Assessment: POD#2 s/p R Tibia ORIF - Dressing change POD#3 - NWB to RLE x6 wks minimum - Up with assist - Passive knee/ankle ROM with PT, encourage active toe/ankle motion - Pain control per hospitalist service due to h/o addiction. Recommend Pain Management referral if possible - DVT prophylaxis. Lovenox 40 Daily x4wks. Pt has has h/o DVT and Coumadin use. - Dispo pending, if home will likely require home PT and possibly health. - F/u in ~10days after discharge Plan: 09/02/17 21:23 09/03/17 08:10 09/03/17 08:16 Subjective: Pt states pain control regimen still inadequate. Swelling has improved. Passing gas, no BM. Neuropathy unchanged. Denies f/c/cp/sob/n/v. OT went well, PT was more difficult. Objective: Vital Signs Temp Pulse Resp BP Pulse Ox 36.4 C 55 L 16 101/63 97 09/03/17 07:29 09/03/17 07:29 09/03/17 07:29 09/03/17 07:29 09/03/17 07:29 Laboratory Results 09/02/17 04:17 09/02/17 04:17 09/02/17 09/03/17 09/04/17 05:59 05:59 05:59 Intake Total 4534.2 3252 Output Total 1600 1150 Balance 2934.2 2102 PT 16.1 SEC (12.0-15.0) H 09/01/17 05:31 INR 1.29 (0.83-1.16) H 09/01/17 05:31 AAOx3 NAD, sleeping upon entering room RLE elevated, swelling improved compartments soft, dressing c/d/i SILT L4-S1 Motor intact EHL, FHL; intact but painful with TA/GSC 2+DP/PT - Time Spent With Patient Time Spent With Patient: 15mins ICD10 Worksheet Patient Problems: Problems Problem Status Onset Dehydration Acute HIV (human immunodeficiency virus infection) Acute Renal insufficiency Acute Tibial plateau fracture, right Acute Renal mass Active Arthrodesis status Acute Lumbago Acute Lumbar radicular pain Acute TIA (transient ischemic attack) Acute
[2017-09-03] MEDS: ATORVASTATIN CALCIUM 10 MG TAB PO SCH (09:43)
[2017-09-03] MEDS: ENOXAPARIN 40 MG/0.4 ML SYR SC SCH (09:43)
[2017-09-03] MEDS: GABAPENTIN 400 MG CAP PO SCH ×3 (09:43→21:24)
[2017-09-03] MEDS: LIDOCAINE 5% 1 EA PATCH TD SCH (09:44)
[2017-09-03] MEDS: RALTEGRAVIR 400 MG TAB PO SCH ×2 (09:50→21:25)
[2017-09-03] MEDS: LAMIVUDINE PO SCH (09:51)
[2017-09-03] MEDS: ABACAVIR SULFATE PO SCH (09:51)
--- NOTE | 2017-09-03 10:17 | HOSPPROG ---
Hospitalist Progress Note Assessment/Plan: #Right tib/fib fracture: s/p ORIF, POD #2. Passive knee motion with PT. NWB for [address] Fuentes 7-10 days #acute pain: note h/o prior heavy opioid use. Off GUEST RELATIONS MANAGER. -will schedule tylenol, nsaids -d/c IV dilaudid -start IV toradol -cont prn oxycodone -need to set limits with opiates. pt agrees to above plan #Falls: due to dehydration, ?neuropathy a factor. No arrhythmia on EKG. Hit head , but no focal findings, hold on CTH #HIV: CD4 579 11/12, undetectable viral load 02/2017 #Diarrhea: no recent travel. GI, UA panel negative 08/21 #ADIN: improved with IVFs #Thrombocytopenia: chronic. No active bleeding here #Depression: not on meds #MAYRA: oxygen at night #h/o RCC: s/p partial nephrectomy #AAA: pt reports 4cm. CTA 05/10 shows no e/o it. Will clarify with patient #Chronic medical problems: latent TB, s/p 9mnths tx, #Diet: regular #DVT ppx: Lovenox #Dispo: cont inpt, may require SNF per therapy reports Subjective: Pt doing ok. His pain is fairly well controlled. No fevers. Objective: Vital Signs Temp Pulse Resp BP Pulse Ox 36.4 C 55 L 16 101/63 97 09/03/17 07:29 09/03/17 07:29 09/03/17 07:29 09/03/17 07:29 09/03/17 07:29 Laboratory Results 09/02/17 04:17 09/02/17 04:17 09/02/17 09/03/17 09/04/17 05:59 05:59 05:59 Intake Total 4534.2 3252 Output Total 1600 1150 Balance 2934.2 2102 PT 16.1 SEC (12.0-15.0) H 09/01/17 05:31 INR 1.29 (0.83-1.16) H 09/01/17 05:31 - Physical Exam Constitutional: no apparent distress Cardiovascular: regular rate and rhythym Respiratory: no respiratory distress Skin: warm Musculoskeletal: other (RLE dressing c/d/i, sensation intact) Neurologic: AAOx3 Psychiatric: interacting appropriately ICD10 Worksheet Patient Problems: Problems Problem Status Onset Dehydration Acute HIV (human immunodeficiency virus infection) Acute Renal insufficiency Acute Tibial plateau fracture, right Acute Renal mass Active Arthrodesis status Acute Lumbago Acute Lumbar radicular pain Acute TIA (transient ischemic attack) Acute
[2017-09-03] MEDS: KETOROLAC 30 MG/1 ML SDV IVP PRN ×2 (10:48→16:49)
[2017-09-03] MEDS: SUMAtriptan 6 MG/0.5 ML VIAL SC PRN (15:51)
[2017-09-03] MEDS ORDERED: NS 500 ML IV ONE (21:32)
[2017-09-03] MEDS: PATCH REMOVAL 1 EA PATCH TD SCH (22:58)
[2017-09-04] MEDS: KETOROLAC 30 MG/1 ML SDV IVP PRN ×2 (01:49→08:38)
[2017-09-04] MEDS: ACETAMINOPHEN 500 MG TAB PO SCH ×3 (01:50→16:24)
[2017-09-04] MEDS: oxyCODONE IR 5 MG TAB PO PRN ×5 (01:51→20:13)
[2017-09-04] MEDS: LORazepam 0.5 MG TAB PO PRN (01:52)
[2017-09-04] MEDS: CYCLOBENZAPRINE 10 MG TAB PO PRN (05:44)
[2017-09-04] MEDS: GABAPENTIN 400 MG CAP PO SCH ×3 (08:38→23:02)
[2017-09-04] MEDS: ENOXAPARIN 40 MG/0.4 ML SYR SC SCH (08:38)
[2017-09-04] MEDS: ATORVASTATIN CALCIUM 10 MG TAB PO SCH (08:39)
[2017-09-04] MEDS: ABACAVIR SULFATE PO SCH (08:49)
[2017-09-04] MEDS: RALTEGRAVIR 400 MG TAB PO SCH ×2 (08:49→20:09)
[2017-09-04] MEDS: LAMIVUDINE PO SCH (08:49)
[2017-09-04] MEDS: LIDOCAINE 5% 1 EA PATCH TD SCH (08:51)
[2017-09-04] MEDS ORDERED: BISACODYL 10 MG SUPP PR PRN (10:00)
[2017-09-04] MEDS ORDERED: MAGNESIUM HYDROXIDE 30 ML UDCUP PO PRN (10:00)
[2017-09-04] MEDS ORDERED: POLYETHYLENE GLYCOL 3350 17 GM PKT PO PRN (10:00)
[2017-09-04] MEDS ORDERED: LACTULOSE 20 GM/30 ML UDCUP PO PRN (10:00)
[2017-09-04 12:05] LABS: % IMMATURE GRANULYOCYTES 0.2 % (0.0-1.1); ABSOLUTE IMMATURE GRANULOCYTES 0.01 10^3/uL (0.00-0.10); ADD DIFF? NO; ADD MORPH? NO; ADD SCAN? NO; ATYPICAL LYMPHOCYTE FLAG 10 (0-99); FRAGMENT RBC FLAG 20 (0-99); HEMATOCRIT 35.6 % (40.0-51.0); LEFT SHIFT FLG 0 (0-99); LIPEMIA HEMOLYSIS FLAG 80 (0-99); MEAN CELL HEMOGLOBIN 31.2 pg (27.9-34.1); MEAN CELL HEMOGLOBIN CONCENTR. 33.7 g/dL (32.4-36.7); MEAN CELL VOLUME 92.5 fL (81.5-99.8); MEAN PLATELET VOLUME 10.9 fL (8.7-11.7); PLATELET CLUMPS FLAG 0 (0-99); PLATELET COUNT 108 10^3/uL (150-400); RED BLOOD CELL COUNT 3.85 10^6/uL (4.40-6.38); RED CELL DISTRIBUTION WIDTH 15.5 % (11.5-15.2)
--- NOTE | 2017-09-04 16:08 | ASMTCMCOM ---
CM Note CM Note Notes: Patient's discharge plan has changed to SNF. Michelle from [facility] was onsite today and can accept patient. Likely discharge tomorrow pending patient's bowel status. He is aware of and agrees to plan. He will have a friend bring him clothes today. I called his [facility] bank messenger Karli Singleton ([phone]) and left her a message detailing the above plan. Current CM Discharge plan: [facility] Date Signed: 09/04/2017 04:07 PM Electronically Signed By:Narda Leach RN
--- NOTE | 2017-09-04 17:17 | HOSPPROG ---
Hospitalist Progress Note Assessment/Plan: * Right tib/fib fracture s/p ORIF -NWB for 6 weeks -Lovenox DVT prophylaxis recommended for 4 weeks (h/o DVT) -poor pain control - increase oxycodone * HIV -viral load undetectable -continue HAART * RCC s/p partial nephrectomy * Latent TB s/p 9 months tx * Constipation -SNF won't accept until BM -bowel protocol * Fibromyalgia Subjective: Agreeable to SNF. 15mg oxycodone not cutting it. His previous home dose was 30mg Objective: Vital Signs Temp Pulse Resp BP Pulse Ox 36.5 C 87 16 118/75 98 09/04/17 15:33 09/04/17 15:33 09/04/17 15:33 09/04/17 15:33 09/04/17 15:33 Laboratory Results 09/04/17 11:45 09/02/17 04:17 09/03/17 09/04/17 09/05/17 05:59 05:59 05:59 Intake Total 3252 2000 Output Total 1150 1375 Balance 2102 625 PT 16.1 SEC (12.0-15.0) H 09/01/17 05:31 INR 1.29 (0.83-1.16) H 09/01/17 05:31 - Physical Exam Constitutional: no apparent distress, appears nourished, not in pain Cardiovascular: regular rate and rhythym, no murmur, rub, or gallop Respiratory: no respiratory distress, no rales or rhonchi, clear to auscultation Gastrointestinal: normoactive bowel sounds, soft, non-tender abdomen, no palpable masses Skin: no rashes or abrasions, no fluctuance, no induration Neurologic: AAOx3, sensation intact bilaterally Psychiatric: interacting appropriately, not anxious, not encephalopathic, thought process linear ICD10 Worksheet Patient Problems: Problems Problem Status Onset Dehydration Acute HIV (human immunodeficiency virus infection) Acute Renal insufficiency Acute Tibial plateau fracture, right Acute Renal mass Active Arthrodesis status Acute Lumbago Acute Lumbar radicular pain Acute TIA (transient ischemic attack) Acute
[2017-09-04] MEDS: SENNOSIDES/DOCUSATE SODIUM TAB PO SCH (20:09)
[2017-09-04] MEDS: PATCH REMOVAL 1 EA PATCH TD SCH (23:17)
[2017-09-05] MEDS: ACETAMINOPHEN 500 MG TAB PO SCH ×2 (01:18→09:40)
[2017-09-05] MEDS: LORazepam 0.5 MG TAB PO PRN ×2 (01:18→09:52)
[2017-09-05] MEDS: oxyCODONE IR 5 MG TAB PO PRN ×4 (01:19→14:56)
[2017-09-05 07:45] VITALS: BP 96/65; PULSE 66; RESP 16; O2SAT 100
[2017-09-05 07:47] VITALS: TEMP 97.7
[2017-09-05] MEDS: GABAPENTIN 400 MG CAP PO SCH ×2 (09:31→14:58)
[2017-09-05] MEDS: ATORVASTATIN CALCIUM 10 MG TAB PO SCH (09:31)
[2017-09-05] MEDS: SENNOSIDES/DOCUSATE SODIUM TAB PO SCH (09:33)
[2017-09-05] MEDS: ENOXAPARIN 40 MG/0.4 ML SYR SC SCH (09:34)
[2017-09-05] MEDS: LIDOCAINE 5% 1 EA PATCH TD SCH (09:35)
[2017-09-05] MEDS: ABACAVIR SULFATE PO SCH (09:38)
[2017-09-05] MEDS: LAMIVUDINE PO SCH (09:38)
[2017-09-05] MEDS: RALTEGRAVIR 400 MG TAB PO SCH (09:39)
[2017-09-05] MEDS: SUMAtriptan 6 MG/0.5 ML VIAL SC PRN (09:43)
[2017-09-05] MEDS ORDERED: LORazepam 1 MG TAB PO PRN (11:36)
--- NOTE | 2017-09-05 11:42 | PDIAF ---
- Diagnosis Diagnosis: Right tib/fib fracture s/p ORIF Code Status: Full Code - Medication Management Discharge Medications: Medications to Continue on Transfer Abacavir Sulfate/Lamivudine [Epzicom Tablet] 1 each PO DAILY 09/05/16 [Last Taken 10/09/16 07:30] Atorvastatin Calcium [Lipitor 10 mg (*)] 10 mg PO DAILY 09/05/16 [Last Taken 03/12] Cyclobenzaprine [Flexeril 10 MG (*)] 10 - 20 mg PO DAILY PRN 09/05/16 [Last Taken 08/31/17 14:00] Raltegravir [Isentress] 400 mg PO BID 09/05/16 [Last Taken 10/09/16 07:30] Tamsulosin HCl [Flomax 0.4 MG (*)] 0.4 mg PO DAILY PRN 09/05/16 [Last Taken 02/10] Lidocaine 5% [Lidoderm 5% Patch (*)] 1 ea TD DAILY #12 patch 08/25/17 [Last Taken Unknown] Gabapentin [Neurontin 400 MG (*)] 800 mg PO TID 09/01/17 [Last Taken 09/01/17 00 :00] Ondansetron Odt [Zofran Odt 4 mg (*)] 8 mg PO Q8HRS PRN 09/01/17 [Last Taken Unknown] Polyethylene Glycol 3350 [Miralax 17 gm (*)] 17 gm PO DAILY PRN 09/01/17 [Last Taken Unknown] SUMAtriptan [Imitrex Sc Injection] 6 mg SQ BID PRN 09/01/17 [Last Taken 08/31/17 ] Acetaminophen [Tylenol ES 500 mg (*)] 1,000 mg PO Q8H #30 tab 09/05/17 [Last Taken Unknown] Enoxaparin [Lovenox 40 MG (*)] 40 mg SC DAILY #30 syr 09/05/17 [Last Taken Unknown] LORazepam [Ativan (*)] 1 mg PO HS PRN #30 tab 09/05/17 [Last Taken Unknown] Sennosides/Docusate Sodium [Senokot-S] 1 - 2 tab PO BID #30 tab 09/05/17 [Last Taken Unknown] oxyCODONE IR [Oxycodone Ir (*)] 15 - 30 mg PO Q4 PRN #20 tab 09/05/17 [Last Taken Unknown] Discharge Medications: Refer to the Discharge Home Medication list for PRN reason. - Orders Services needed: Physical Therapy, Occupational Therapy Isolation Type: None Diet Recommendation: no restrictions on diet Activity/Weight Bearing Restrictions: NWB for 6 weeks Additional: Lovenox prophylaxis for 4 weeks - Follow Up Care Current Providers and Referrals: Jeremy Fuentes MD [Medical Doctor] - (7-10 DAYS) Patient,NotPresent [Unknown] - As per Instructions
--- NOTE | 2017-09-05 16:26 | ASDISCHSUM ---
Discharge Information Plan Status:SNF Medically Cleared to Leave: Discharge Date:09/05/2017 04:04 PM D/C Disposition:Assisted Facility ADT D/C Disposition:Assisted Facility Projected Discharge Date:09/04/2017 04:00 PM Transportation at D/C:Wheelchair Van Discharge Delay Reason: Follow-Up Date:09/04/2017 04:00 PM Discharge Slot: Final Diagnosis: Placement Information Referral Type:*Residential/SNF Referral ID:[id number] Provider Name:Breanne Sweet Address 1:[address] [facility] Phone Number: Address 2: Fax Number: City:[place] Selection Factors: State:[place] Patient Contact Information Contact Name:NIKOLAS Relationship:Son Address: Work Phone: City: [facility] Phone: [facility] Code: Email: Financial Information Financial Class: Primary Plan Desc:MEDICARE INPATIENT Primary Plan Number:[id number] Secondary Plan Desc:MED[place] Secondary Plan Number:[id number] Assessment Information [facility] CM Progress Note CM Note CM Note Notes: Patient is POD #1 ORIF R tib/fib fracture. I spoke with him about discharge planning, he expressed frustration that he was "just out of the OR" and felt that people were rushing him to leave. He also said that the PT he worked with today recommended a SNF but that he has services at home and would like to increase those. Patient has HCBS through Medicaid, which includes 9 hours of DIRECTOR OF QUALITY [employer] help/week (DIRECTOR OF QUALITY CONTROL is with the agency [employer] out of [place], [place]). I called his rn case manager hospice Karli Singleton ([phone]) to discuss increasing his services and left her a voicemail. CM will follow. Date Signed: 09/02/2017 02:54 PM Electronically Signed By:Narda Leach RN [facility] CM Progress Note CM Note CM Note Notes: Patient's discharge plan has changed to SNF. [facility] was onsite today and can accept patient. Likely discharge tomorrow pending patient's bowel status. He is aware of and agrees to plan. He will have a friend bring him clothes today. I called his [facility] mechanic sound technician Karli Singleton ([phone]) and left her a message detailing the above plan. Current CM Discharge plan: [facility] Date Signed: 09/04/2017 04:07 PM Electronically Signed By:Narda Leach RN [facility] CM Progress Note CM Note CM Note Notes: Pt medically stable for d/c to [facility]. Orders sent in [employer]. Michelle PARISI set up transport for 1600. RN to call report. Date Signed: 09/05/2017 04:25 PM Electronically Signed By:EMY Toth Intervention Information
--- NOTE | 2017-09-05 22:39 | GDS ---
[f rep st] DISCHARGE SUMMARY DISCHARGE DIAGNOSES: 1. Right tibia/fibula fracture, status post open reduction and internal fixation. 2. History of deep venous thrombosis. 3. Human immunodeficiency virus with viral load undetectable. 4. Renal cell carcinoma, status post partial nephrectomy. 5. Latent tuberculosis, status post 9 months' treatment. 6. Constipation. 7. Fibromyalgia. HISTORY: The patient is a 62-year-old male, who presents with a right tib-fib fracture. He underwen t ORIF. He is to be nonweightbearing for 6 weeks. Given his history of previous DVT, Lovenox will b e continued for 4 weeks of therapy. Pain control was difficult and we did need to increase his oxyco done. This will need to be watched judiciously as he does have a history of previous narcotic depend ency. He did discharge to assisted facility, and went to [facility] today. DISCHARGE MEDICATIONS: Please see computerized record for full detailed list. New medications: 1. Tylenol 1000 mg p.o. q.8 hours. 2. Lovenox 40 mg subcu daily, to continue for 4 weeks. 3. Ativan 1 mg p.o. at bedtime as needed. 4. Oxycodone 15-30 mg every 4 hours as needed. 5. Senna 1-2 tabs p.o. twice daily. The remainder of his medications will continue as they were prior to admission. ADDITIONAL DISCHARGE INSTRUCTIONS: 1. Follow up with Dr. Jeremy Fuentes of Orthopedic Surgery. 2. Nonweightbearing for 6 weeks. 3. Lovenox prophylaxis for 4 weeks. 4. Greater than 30 minutes' time was spent arranging this discharge. Patient was seen and examined by radha lee on day of discharge. /[id number]/MODL
== END 2017-09-05 16:04 | DRG 493 ==
LOC: EDUNIT# → F1N 09-01 00:42 → F3N 09-01 16:00
PROVIDERS: ADMIT Family Medicine; ATTEND Family Medicine
PROC: 0QSG04Z Reposition Right Tibia with Internal Fixation Device, Open Approach (ICD-10-PCS; principal; 2017-09-01 11:30)
DX: S82.201A Unspecified fracture of shaft of right tibia, initial encounter for closed fracture (principal); S82.401A Unspecified fracture of shaft of right fibula, initial encounter for closed fracture; W19.XXXA Unspecified fall, initial encounter; Y92.010 Kitchen of single-family (private) house as the place of occurrence of the external cause; Z91.81 History of falling; N17.9 Acute kidney failure, unspecified; E86.0 Dehydration; Z21 Asymptomatic human immunodeficiency virus [HIV] infection status; K59.00 Constipation, unspecified; D69.6 Thrombocytopenia, unspecified; G89.29 Other chronic pain; F31.9 Bipolar disorder, unspecified; G47.33 Obstructive sleep apnea (adult) (pediatric); M79.7 Fibromyalgia; N40.0 Benign prostatic hyperplasia without lower urinary tract symptoms; E78.5 Hyperlipidemia, unspecified; Z86.718 Personal history of other venous thrombosis and embolism; F32.9 Major depressive disorder, single episode, unspecified; R76.11 Nonspecific reaction to tuberculin skin test without active tuberculosis; Z85.528 Personal history of other malignant neoplasm of kidney; Z87.820 Personal history of traumatic brain injury; Z87.442 Personal history of urinary calculi; Z98.1 Arthrodesis status
CPT/HCPCS: 87536-90; 96374; 97116-GP; 97162-GP; 97166-GO; 97530-GO; 97535-GO; C1713; C1769; G8978-GP-CK; G8979-GP-CI; G8987-GO-CK; G8988-GO-CI; J0690; J1100; J1170; J1650; J1885; J2060; J2250; J2405; J2704; J3010; J3030

== ENCOUNTER → 2018-03-04 | Outpatient (CLI) | payer OTHER, MEDICAID | LOC: FIMAGING 12:50 | PROVIDERS: ATTEND Orthopaedic Surgery | DX: S82.201D Unspecified fracture of shaft of right tibia, subsequent encounter for closed fracture with routine healing (principal) ==

== ENCOUNTER → 2018-07-20 | Outpatient (CLI) | payer OTHER, MEDICAID | LOC: FIMAGING 08:03 | PROVIDERS: ATTEND Nurse Practitioner | DX: M48.02 Spinal stenosis, cervical region (principal); M48.061 Spinal stenosis, lumbar region without neurogenic claudication; M51.16 Intervertebral disc disorders with radiculopathy, lumbar region; M51.34 Other intervertebral disc degeneration, thoracic region; M51.36 Other intervertebral disc degeneration, lumbar region; M46.93 Unspecified inflammatory spondylopathy, cervicothoracic region; Z98.1 Arthrodesis status ==

== ENCOUNTER → 2018-08-06 | Outpatient (CLI) | payer OTHER, MEDICAID | LOC: FIMAGING 11:12 | PROVIDERS: ATTEND Nurse Practitioner | DX: M54.2 Cervicalgia (principal); Z98.1 Arthrodesis status ==

== ENCOUNTER 2018-11-03 13:15 | Emergency (ER) | payer OTHER, MEDICAID ==
[2018-11-03] MEDS ORDERED: NS 500 ML IV ONE (13:18)
--- NOTE | 2018-11-03 13:37 | EDPHY ---
H & P Time Seen by Provider: 11/03/18 13:17 HPI/ROS: HPI Passed out. 63-year-old male by ambulance. This patient was at home. He was doing chores around the house. He was taking some Compost out to his Compost storage unit. He reports that he was bending over with the bag of Compost when he felt very lightheaded and then had a syncopal event. He was seen down on the ground by his neighbor called EMS. He complains of a frontal headache. He has a prior history of traumatic brain injury. Denies associated chest pain, palpitations, shortness of breath, loss of sensation or weakness in his extremities. He does not think he hit his head. He reports having a similar episode to this back in March 2017 when he was pushing his broken down car. He denies sudden-onset in headache and states the headache was present prior to the syncopal event. His states this headache is similar to his prior migraine headaches. ROS: Constitutional: No fever, no chills. As above. Eyes: No discharge. No changes in vision. ENT: No sore throat. No nasal congestion or rhinorrhea. Respiratory: No cough. No shortness of breath. Cardiac: No chest pain, no palpitations. Gastrointestinal: No abdominal pain, no vomiting, no diarrhea. Genitourinary: No hematuria. No dysuria or increased frequency with urination. Musculoskeletal: No back pain. No neck pain. No myalgias or arthralgias. Skin: No rashes. Neurological: Headache as above. No focal weakness or altered sensation. Past medical history: Significant for HIV with undetectable viral load, AAA, DVT, tib-fib fracture, TBI's with history of multiple falls, chronic back pain, renal cell carcinoma, status post partial nephrectomy, IBS with chronic diarrhea , obstructive sleep apnea, uses nasal cannula oxygen at night, fibromyalgia, hyperlipidemia, osteoarthritis, BPH, glaucoma, history of latent TB, migraine headaches. He also reports that he was evaluated by Dr. Jose Luis Estrada of the Surgical service recently for removal a chest wall lipoma this. He had an abdominal ultrasound at that time. There is no AAA seen. Social history: He is divorce. No alcohol. Denies tobacco. He uses marijuana occasionally. Physical Exam: General Appearance: Alert, no distress. This patient is responding to questions appropriately and in full sentences. This patient appears well- hydrated and well-nourished. Eyes: Pupils equal and round and reactive to light at 3-2 mm bilaterally, no pallor or injection. No lid edema, erythema or injection. No nystagmus. No photophobia. ENT, Mouth: Mucous membranes are moist. The pharyngeal tissues are unremarkable. No edema or swelling. No asymmetry suggestive of abscess. No erythema or exudates. No tongue lacerations or abrasions. Respiratory: There are no retractions, lungs are clear to auscultation with good air movement bilaterally. Cardiovascular: Regular rate and rhythm. No murmur. Gastrointestinal: Abdomen is soft and nontender, no masses, bowel sounds normal. No focal tenderness at McBurney's point. No Epps sign. Neurological: Motor sensory function is grossly intact. Cranial nerves are normal. Gait is normal. Skin: Warm and dry, no rashes. Musculoskeletal: Neck is supple and nontender. Extremities are symmetrical. All joints range without pain or impingement. Psychiatric: No agitation. No depression. Database: EKG: EKG time is 2:11 p.m.; EKG shows a narrow complex normal sinus rhythm with a ventricular rate of 81. The UT, QRS, QT intervals are within normal limits. There are no ST-T wave changes indicative of ischemic or injury pattern. No evidence of right heart strain. No evidence of WPW, Brugada syndrome, hypertrophic cardiomyopathy. Interpreted by me. Imaging: CT head without contrast: Negative. Results were discussed with staff radiologist Dr. Elio Obrien. Procedures: Emergency department course: Triage vitals reviewed and are unremarkable. He is afebrile. IV was placed. He was started on IV normal saline with 500 cc to be given over the next hour. EKG obtained and reviewed by myself. Patient consents to above workup. 2:30 p.m., the patient was re-evaluated, sleeping but easily arousable. He still complains of a headache. He states that this is similar to headaches he has had in the past. He is asking for some pain medication. He has no contraindications to NSAIDs and he has a normal creatinine today. He will be given 30 mg of IV Toradol. 3:20 p.m., the patient was re-evaluated, his headache has resolved. Repeat neurologic Assessment is nonfocal. He is up and ambulatory under his own power with a normal gait. He feels comfortable going home at this time and I feel he is safe for discharge. Follow-up and return to emergency department precautions reviewed with him. All of his questions were answered. He was discharged home in good condition. Differential Diagnosis: The differential diagnosis on this patient includes but is not limited to vasovagal syncope, noncardiac syncope, dehydration. Ruptured AAA, subarachnoid hemorrhage, pulmonary embolism, acute coronary syndrome, CVA unlikely. This represents a partial list of diagnoses considered. These considerations are based on history, physical exam, past history, reassessment and diagnostic testing. Smoking Status: Never smoked Constitutional: Initial Vital Signs Temperature (C) 36.4 C 11/03/18 13:21 Heart Rate 87 11/03/18 13:21 Respiratory Rate 18 11/03/18 13:21 Blood Pressure 133/97 H 11/03/18 13:21 O2 Sat (%) 92 11/03/18 13:21 O2 Delivery Mode Room Air Allergies/Adverse Reactions: meperidine HCl [From Demerol] Allergy (Intermediate, Verified 11/03/18 17:06) Vomiting adhesive tape [Adhesive Tape] Allergy (Verified 11/03/18 17:06) BLISTERS Tegaderm Allergy (Intermediate, Uncoded 08/25/17 16:00) Blisters meperidine HCl Allergy (Unknown, Uncoded 09/04/17 11:36) Vomiting Home Medications: Medication Instructions Recorded Abacavir Sulfate/Lamivudine 1 each PO DAILY 09/05/16 [Epzicom Tablet] Atorvastatin Calcium [Lipitor 10 10 mg PO DAILY 09/05/16 mg (*)] Cyclobenzaprine [Flexeril 10 MG 10 - 20 mg PO DAILY PRN 09/05/16 (*)] Raltegravir [Isentress] 400 mg PO BID 09/05/16 Tamsulosin HCl [Flomax 0.4 MG (*)] 0.4 mg PO DAILY PRN 09/05/16 Lidocaine 5% [Lidoderm 5% Patch] 1 ea TD DAILY #12 patch 08/25/17 Gabapentin [Neurontin 400 MG (*)] 800 mg PO TID 09/01/17 Ondansetron Odt [Zofran Odt 4 mg 8 mg PO Q8HRS PRN 09/01/17 (*)] Polyethylene Glycol 3350 [Miralax 17 gm PO DAILY PRN 09/01/17 17 gm (*)] SUMAtriptan [Imitrex Sc Injection] 6 mg SQ BID PRN 09/01/17 Acetaminophen [Tylenol ES 500 mg 1,000 mg PO Q8H #30 tab 09/05/17 (*)] Enoxaparin [Lovenox 40 MG (*)] 40 mg SC DAILY #30 syr 09/05/17 LORazepam [Ativan (*)] 1 mg PO HS PRN #30 tab 09/05/17 Sennosides/Docusate Sodium 1 - 2 tab PO BID #30 tab 09/05/17 [Senokot-S] oxyCODONE IR [Oxycodone Ir (*)] 15 - 30 mg PO Q4 PRN #20 tab 09/05/17 Metoclopramide [Reglan 10 mg tab 10 mg PO BID PRN #10 tab 11/03/18 (RX)] Medical Decision Making - Data Points Laboratory Results: Laboratory Results 11/03/18 13:35 11/03/18 13:35 Medications Given: Discontinued Medications Sodium Chloride (Ns) 500 mls @ 1,000 mls/hr IV EDNOW ONE PRN Reason: Protocol Stop: 11/03/18 13:47 Last Admin: 11/03/18 14:03 Dose: 500 mls Ketorolac Tromethamine (Toradol) 30 mg IVP EDNOW ONE Stop: 11/03/18 14:31 Last Admin: 11/03/18 15:00 Dose: 30 mg Point of Care Test Results: Chemistry 11/03/18 13:38 POC Troponin I 0.01 ng/mL ng/mL (0.00-0.08) Departure - Departure Disposition: Home, Routine, Self-Care Clinical Impression: Syncope Condition: Good Instructions: Syncope (ED) Additional Instructions: Read and follow provided instructions. Follow-up with your primary care physician tomorrow as discussed for re- evaluation. Continue taking your medication as prescribed. Return to the emergency department for worsening symptoms, worsening headache, difficulty breathing, abdominal pain or chest pain, heart palpitations, lightheadedness or other serious concerns. Referrals: Patient,NotPresent [Unknown] - As per Instructions
[2018-11-03 13:56] LABS: PLATELET COUNT 121 10^3/uL (150-400)
[2018-11-03] MEDS ORDERED: KETOROLAC 30 MG/1 ML SDV IVP ONE (14:30)
[2018-11-03 15:29] VITALS: BP 120/73
--- NOTE | 2018-11-03 21:20 | CPEKG ---
Test Reason : OPEN Blood Pressure : / mmHG Vent. Rate : 081 BPM Atrial Rate : 082 BPM P-R Int : 163 ms QRS Dur : 102 ms QT Int : 393 ms P-R-T Axes : 048 -11 023 degrees QTc Int : 457 ms Sinus rhythm Confirmed by Loan Red ([id number] on 11/03/2018 9:19:58 PM Referred By: Confirmed By:Loan Red
== END 2018-11-03 15:42 | disposition home or self-care (01) ==
LOC: EDUNIT#
DX: R55 Syncope and collapse (principal); E86.9 Volume depletion, unspecified
CPT/HCPCS: 70450; 93005; 96361; 96374; 99285; J1885; 84484-ER; J2765

== ENCOUNTER 2018-11-03 16:54 | Emergency (ER) | payer OTHER, MEDICAID ==
[2018-11-03] MEDS ORDERED: SUMAtriptan 20 MG/SPRAY BTL NS ONE (18:14)
[2018-11-03] MEDS ORDERED: NS 1,000 ML IV ONE (18:14)
--- NOTE | 2018-11-03 18:18 | EDPHY ---
H & P Stated Complaint: bocanegra/became upset in wr post discharge is checking back in Time Seen by Provider: 11/03/18 18:07 HPI/ROS: CHIEF COMPLAINT: Headache HISTORY OF PRESENT ILLNESS: Patient is a 63-year-old man with HIV with undetectable viral load who comes to the emergency department complaining of a headache. He had a syncopal episode earlier today while bending over. He was seen here in the emergency department and had negative lab work and negative head CT. He had a headache at the time and resolved with Toradol. He states that he when out to the waiting room and was waiting for a taxi. While there he got agitated at someone on the phone was asked to leave by security. He then got agitated with security and his headache returned. He is requesting Imitrex. He states that this usually works well for him at home. He states that he does have a history of frequent migraines. He also has a history of chronic neuropathy in for myalgia and takes oxycodone as well as Ativan and Neurontin at home. Also history of several traumatic brain injuries. No new trauma today. He does not wish to have further workup or testing done but is simply requesting Imitrex. No nausea vomiting. He does have mild photophobia but no vision changes. No neck pain or stiffness. Severity: Severe Modifying factors: See above REVIEW OF SYSTEMS: Constitutional: denies: chills, fever, recent illness, recent injury EENTM: denies: blurred vision, double vision, nose congestion Respiratory: denies: cough, shortness of breath Cardiac: denies: chest pain, irregular heart rate, lightheadedness, palpitations Gastrointestinal/Abdominal: denies: abdominal pain, diarrhea, nausea, vomiting, blood streaked stools Genitourinary: denies: dysuria, frequency, hematuria, pain Musculoskeletal: denies: joint pain, muscle pain Skin: denies: lesions, rash, jaundice, bruising Neurological: See HPI denies: numbness, paresthesia, tingling, dizziness, weakness Hematologic/Lymphatic: denies: blood clots, easy bleeding, easy bruising Immunologic/allergic: denies: HIV/AIDS, transplant 10 systems reviewed and negative except as noted EXAM: GENERAL: Well-appearing, well-nourished and in no acute distress. HEAD: Atraumatic, normocephalic. EYES: Pupils equal round and reactive to light, extraocular movements intact, sclera anicteric, conjunctiva are normal. ENT: TMs normal, nares patent, oropharynx clear without exudates. Moist mucous membranes. NECK: Normal range of motion, supple without lymphadenopathy or JVD. LUNGS: Breath sounds clear to auscultation bilaterally and equal. No wheezes rales or rhonchi. HEART: Regular rate and rhythm without murmurs, rubs or gallops. ABDOMEN: Soft, nontender, normoactive bowel sounds. No guarding, no rebound. No masses appreciated. BACK: No CVA tenderness, no spinal tenderness, step-offs or deformities EXTREMITIES: Normal range of motion, no pitting or edema. No clubbing or cyanosis. NEUROLOGICAL: Cranial nerves II through XII grossly intact. Normal speech, normal gait. 5/5 strength, normal movement in all extremities, normal sensation , normal reflexes PSYCH: Normal mood, normal affect. SKIN: Warm, dry, normal turgor, no visible rashes or lesions. Source: Patient Exam Limitations: No limitations - Personal History Current Tetanus Diphtheria and Acellular Pertussis (TDAP): Yes Tetanus Vaccine Date: 2007 - Medical/Surgical History Hx Asthma: No Hx Chronic Respiratory Disease: No Hx Diabetes: No Hx Cardiac Disease: No Hx Renal Disease: No Hx Cirrhosis: No Hx Alcoholism: No Hx HIV/AIDS: Yes Hx Splenectomy or Spleen Trauma: No Other PMH: HIV-positive, chronic low back pain, obstructive sleep apnea, fibromyalgia, 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, osteoporosis, peripheral neuropathy, degenerative arthritis, hyperlipidemia, renal cell carcinoma status post partial nephrectomy, abdominal aortic aneurysm, multiple TBIs, MAYRA - Family History Significant Family History: No pertinent family hx - Social History Smoking Status: Never smoked Alcohol Use: Sober Drug Use: None Constitutional: Initial Vital Signs Temperature (C) 36.4 C 11/03/18 17:06 Heart Rate 84 11/03/18 17:06 Respiratory Rate 17 11/03/18 17:06 Blood Pressure 150/77 H 11/03/18 17:06 O2 Sat (%) 97 11/03/18 17:06 O2 Delivery Mode Room Air Allergies/Adverse Reactions: meperidine HCl [From Demerol] Allergy (Intermediate, Verified 11/03/18 17:06) Vomiting adhesive tape [Adhesive Tape] Allergy (Verified 11/03/18 17:06) BLISTERS Tegaderm Allergy (Intermediate, Uncoded 08/25/17 16:00) Blisters meperidine HCl Allergy (Unknown, Uncoded 09/04/17 11:36) Vomiting Home Medications: Medication Instructions Recorded Abacavir Sulfate/Lamivudine 1 each PO DAILY 09/05/16 [Epzicom Tablet] Atorvastatin Calcium [Lipitor 10 10 mg PO DAILY 09/05/16 mg (*)] Cyclobenzaprine [Flexeril 10 MG 10 - 20 mg PO DAILY PRN 09/05/16 (*)] Raltegravir [Isentress] 400 mg PO BID 09/05/16 Tamsulosin HCl [Flomax 0.4 MG (*)] 0.4 mg PO DAILY PRN 09/05/16 Lidocaine 5% [Lidoderm 5% Patch] 1 ea TD DAILY #12 patch 08/25/17 Gabapentin [Neurontin 400 MG (*)] 800 mg PO TID 09/01/17 Ondansetron Odt [Zofran Odt 4 mg 8 mg PO Q8HRS PRN 09/01/17 (*)] Polyethylene Glycol 3350 [Miralax 17 gm PO DAILY PRN 09/01/17 17 gm (*)] SUMAtriptan [Imitrex Sc Injection] 6 mg SQ BID PRN 09/01/17 Acetaminophen [Tylenol ES 500 mg 1,000 mg PO Q8H #30 tab 09/05/17 (*)] Enoxaparin [Lovenox 40 MG (*)] 40 mg SC DAILY #30 syr 09/05/17 LORazepam [Ativan (*)] 1 mg PO HS PRN #30 tab 09/05/17 Sennosides/Docusate Sodium 1 - 2 tab PO BID #30 tab 09/05/17 [Senokot-S] oxyCODONE IR [Oxycodone Ir (*)] 15 - 30 mg PO Q4 PRN #20 tab 09/05/17 Metoclopramide [Reglan 10 mg tab 10 mg PO BID PRN #10 tab 11/03/18 (RX)] Medical Decision Making ED Course/Re-evaluation: 7:20 p.m. the patient states he is feeling better. His headache is improved slightly but is feeling nauseous. Will treat with Reglan. 9:30 p.m. the patient is feeling completely better. He is eager to go home. He is asking for prescription for Reglan. Differential Diagnosis: Partial list of the Differential diagnosis considered include but were not limited to; headache, dehydration, syncope and although unlikely based on the history and physical exam, I also considered acute coronary disease, dissection , hemorrhage, PE. - Data Points Medications Given: Discontinued Medications Sodium Chloride (Ns) 1,000 mls @ 0 mls/hr IV ONCE ONE; Wide Open PRN Reason: Protocol Stop: 11/03/18 18:15 Last Admin: 11/03/18 18:32 Dose: 1,000 mls Metoclopramide HCl (Reglan Injection) 10 mg IVP EDNOW ONE Stop: 11/03/18 19:26 Last Admin: 11/03/18 19:28 Dose: 10 mg Promethazine HCl (Phenergan 25 Mg Prepack #4) 1 btl TAKEHOME EDNOW ONE Stop: 11/03/18 21:40 Last Admin: 11/03/18 21:51 Dose: 1 btl Sumatriptan Succinate (Imitrex Nasal [place] [employer]) 20 mg NS ONCE ONE Stop: 11/03/18 18:15 Last Admin: 11/03/18 18:33 Dose: 20 mg Departure - Departure Disposition: Home, Routine, Self-Care Clinical Impression: Headache Qualifiers: Headache type: unspecified Headache chronicity pattern: acute headache Intractability: not intractable Qualified Code(s): R51 - Headache Condition: Fair Instructions: Promethazine (By mouth), Acute Headache (ED) Referrals: Kirstin Tirado MD [Primary Care Provider] - As per Instructions Prescriptions: Metoclopramide [Reglan 10 mg tab (RX)] 10 mg PO BID PRN #10 tab PRN Reason: Headache
[2018-11-03] MEDS ORDERED: METOCLOPRAMIDE 10 MG/2 ML VIAL IVP ONE (19:25)
[2018-11-03] MEDS ORDERED: PROMETHAZINE 25 MG PREPACK #4 BTL TAKEHOME ONE (21:39)
[2018-11-03 21:48] VITALS: BP 135/78
== END 2018-11-03 21:54 | disposition home or self-care (01) ==
DX: R51 Headache (principal); Z21 Asymptomatic human immunodeficiency virus [HIV] infection status; M79.7 Fibromyalgia; M54.5 Low back pain; G89.29 Other chronic pain
CPT/HCPCS: 96374; 99284; J2765

== ENCOUNTER 2019-02-08 16:08 | Emergency (ER) | payer OTHER, MEDICAID ==
[2019-02-08] MEDS ORDERED: NS 500 ML IV ONE (16:42)
[2019-02-08] MEDS ORDERED: fentaNYL 100 MCG/2 ML INJ IVP ONE ×2 (16:43→17:33)
[2019-02-08] MEDS ORDERED: KETOROLAC 30 MG/1 ML SDV IVP ONE (16:43)
[2019-02-08] MEDS ORDERED: ONDANSETRON 4 MG/2 ML VIAL IVP ONE (16:44)
--- NOTE | 2019-02-08 16:48 | EDPHY ---
H & P Time Seen by Provider: 02/08/19 16:29 HPI/ROS: CHIEF COMPLAINT: Left shoulder pain, left chest pain HISTORY OF PRESENT ILLNESS: The patient is a 63-year-old male with a history of HIV and cervical spinal disease the presents emergency department left shoulder and left chest pain. His pain has been ongoing for some time. He went saw his primary care physician and had an outpatient MRI today. He went from the MRI to see Dr. Kvng Aragon. He was told that their office that the doctor had no explanation for left shoulder left-sided pain in he was sent to the emergency department for further evaluation. Patient feels as though there is a stabbing pain into the left back/chest and shoulder. His left shoulder feels heavy. No fevers or chills. No cough or shortness of breath. No leg pain or swelling. REVIEW OF SYSTEMS: 10 systems were reveiwed and are negative with the exception of the elements mentioned in the history of present illness. Past Medical/Surgical History: Includes HIV, chronic back pain, obstructive sleep apnea, fibromyalgia, latent TB, osteoporosis, peripheral neuropathy, degenerative arthritis, hyperlipidemia , renal cell carcinoma, aortic aneurysm, obstructive sleep apnea Past surgical history: Includes partial nephrectomy Social history: Patient does not smoke. Smoking Status: Never smoked Physical Exam: Vitals noted. Heart rate 102. GENERAL: Well-appearing, in no acute distress, alert. HEENT: Eyes normal to inspection, normal pharynx, no signs of dehydration. NECK: Normal, supple. RESPIRATORY: Clear to auscultation bilaterally, no rales, rhonchi or wheezing. CVS: Regular rate and rhythm, no rubs, murmurs, or gallops. Chest wall: No tenderness to palpation. ABDOMEN: Soft, nontender, nondistended, no organomegaly. BACK: Normal to inspection, no CVA tenderness. SKIN: Normal color, no rash, warm, dry. No pallor. EXTREMITIES: No pedal edema, no calf tenderness, no Homans sign or cords, no joint swelling. The patient's left shoulder appears normal. He has normal range of motion. Patient's left upper extremity is neurovascularly intact distally. NEURO/PSYCH: Alert and oriented, normal mood and affect, normal motor sensory exam. No obvious cranial nerve deficit. Constitutional: Initial Vital Signs Temperature (C) 36.7 C 02/08/19 16:15 Heart Rate 102 H 02/08/19 16:15 Respiratory Rate 18 02/08/19 16:15 Blood Pressure 115/87 H 02/08/19 16:15 O2 Sat (%) 94 02/08/19 16:15 O2 Delivery Mode Nasal Cannula O2 (L/minute) 2 Allergies/Adverse Reactions: meperidine HCl [From Demerol] Allergy (Verified 02/01/19 17:04) Vomiting Tegaderm Allergy (Uncoded 02/01/19 17:04) Blisters Home Medications: Medication Instructions Recorded Abacavir Sulfate/Lamivudine 09/05/16 [Epzicom Tablet] Cyclobenzaprine [Flexeril 10 MG DAILY PRN 09/05/16 (*)] Raltegravir [Isentress] BID 09/05/16 Gabapentin [Neurontin 400 MG (*)] TID 09/01/17 Aspirin 02/01/19 DULoxetine 02/01/19 Herbals/Supplements -Info Only 02/01/19 Cyclobenzaprine [Flexeril] 10 mg PO TID #15 tab 02/08/19 oxyCODONE HCL [Oxycodone HCl] 5 mg PO Q4 #13 tablet 02/08/19 predniSONE 20 mg PO DAILY 4 Days tab 02/08/19 Medical Decision Making - Diagnostics Imaging Results: Imaging Impressions Cervical Spine MRI 02/08/19 11:30 Impression: 1. Multilevel mild to moderate degenerative disk disease, resulting in mild central canal stenosis. 2. Multilevel bilateral facet arthropathy, right worse than left, resulting in variable bilateral neural foraminal stenosis. 3. C6-C7: Moderate to severe bilateral neural foraminal stenosis, secondary to moderate degenerative disk disease with bilateral uncovertebral osteophytes and bilateral facet arthropathy. 4. No cord compression or edema. 5. Limited due to patient motion artifact. 6. Please see above findings at specific disk levels. Findings and recommendations given to Dr. Kirstin Tirado at 1230 hours on February 08, 2019. Final report concurs with initial preliminary interpretation. Chest X-Ray 02/08/19 16:43 Impression: Poor inspiration. Nothing acute identified. Chest/Thorax CTA 02/08/19 17:23 Impression: 1. No evidence of pulmonary embolus using CT protocol. 2. Mild atherosclerotic calcified plaques involving the proximal LAD and right coronary artery. Findings discussed with Gladys Avendano M.D. at 18:07 hour, 02/08/2019. ED Course/Re-evaluation: In the emergency department discussed possible etiologies with the patient. I answered all his questions. IV was placed. Patient given Toradol 30 mg IV and fentanyl 100 mcg IV for pain control. He is given Zofran 4 mg IV for nausea. Laboratory studies, EKG and chest x-ray were ordered. I reviewed the patient's MRI cervical spine. The patient has noted spinal stenosis and bilateral disease. In general, the right is worse than the left. However, there is disease present on the left side. EKG: Sinus rhythm at 86. S1, Q3, T3. Patient's CBC is unremarkable. Chemistry panel is notable for slightly low sodium. Renal function is normal. D-dimer is elevated at 0.93. Troponin is negative. CT angiogram was ordered. I discussed with the patient. I answered all his questions and discussed the risks and benefits. He agreed to the study. Patient was given repeat fentanyl 100 mcg IV for pain control. CT angio chest: Please refer the dictated report. No acute disease noted. Discussed results with the patient. I answered all his questions. He was given warnings prior to leaving. He will follow up with Neurosurgery. I feel his pain is likely secondary to his neck. He does have neck disease bilaterally. This could be causing his left-sided neck pain. Patient has a nonfocal neuro exam. I feel he is safe for discharge. Differential Diagnosis: My differential includes but is not limited to cervical disease, disc herniation , dissection, aneurysm, ACS, acute MN, pneumothorax, pulmonary embolus - Data Points Laboratory Results: Laboratory Results 02/08/19 16:50 02/08/19 16:50 02/08/19 02/08/19 02/08/19 16:53 16:50 16:50 WBC RBC Hgb Hct MCV MCH MCHC RDW Plt Count MPV Neut % (Auto) Lymph % (Auto) [place] % (Auto) Eos % (Auto) Baso % (Auto) Nucleat RBC Rel Count Absolute Neuts (auto) Absolute Lymphs (auto) Absolute Monos (auto) Absolute Eos (auto) Absolute Basos (auto) Absolute Nucleated RBC Immature Gran % Immature Gran # D-Dimer 0.93 ug/mLFEU H ug/mLFEU (0.00-0.50) Sodium 132 mEq/L L mEq/L (135-145) Potassium 4.1 mEq/L mEq/L (3.5-5.2) Chloride 101 mEq/L mEq/L (97-110) Carbon Dioxide 20 mEq/l L mEq/l (22-31) Anion Gap 11 mEq/L mEq/L (6-14) BUN 21 mg/dL mg/dL (7-23) Creatinine 1.1 mg/dL mg/dL (0.7-1.3) Estimated GFR > 60 Glucose 99 mg/dL mg/dL (70-100) Calcium 9.2 mg/dL mg/dL (8.5-10.4) POC Troponin I 0.00 ng/mL ng/mL (0.00-0.08) 02/08/19 16:50 WBC 5.86 10^3/uL 10^3/uL (3.80-9.50) RBC 5.28 10^6/uL 10^6/uL (4.40-6.38) Hgb 17.2 g/dL g/dL (13.7-17.5) Hct 50.3 % % (40.0-51.0) MCV 95.3 fL fL (81.5-99.8) MCH 32.6 pg pg (27.9-34.1) MCHC 34.2 g/dL g/dL (32.4-36.7) RDW 14.4 % % (11.5-15.2) Plt Count 167 10^3/uL 10^3/uL (150-400) MPV 10.7 fL fL (8.7-11.7) Neut % (Auto) 54.9 % % (39.3-74.2) Lymph % (Auto) 35.5 % % (15.0-45.0) [place] % (Auto) 6.8 % % (4.5-13.0) Eos % (Auto) 2.0 % % (0.6-7.6) Baso % (Auto) 0.5 % % (0.3-1.7) Nucleat RBC Rel Count 0.0 % % (0.0-0.2) Absolute Neuts (auto) 3.21 10^3/uL 10^3/uL (1.70-6.50) Absolute Lymphs (auto) 2.08 10^3/uL 10^3/uL (1.00-3.00) Absolute Monos (auto) 0.40 10^3/uL 10^3/uL (0.30-0.80) Absolute Eos (auto) 0.12 10^3/uL 10^3/uL (0.03-0.40) Absolute Basos (auto) 0.03 10^3/uL 10^3/uL (0.02-0.10) Absolute Nucleated RBC 0.00 10^3/uL 10^3/uL (0-0.01) Immature Gran % 0.3 % % (0.0-1.1) Immature Gran # 0.02 10^3/uL 10^3/uL (0.00-0.10) D-Dimer Sodium Potassium Chloride Carbon Dioxide Anion Gap BUN Creatinine Estimated GFR Glucose Calcium POC Troponin I Medications Given: Discontinued Medications Fentanyl (Sublimaze) 100 mcg IVP EDNOW ONE Stop: 02/08/19 16:44 Last Admin: 02/08/19 16:56 Dose: 100 mcg Fentanyl (Sublimaze) 100 mcg IVP EDNOW ONE Stop: 02/08/19 17:34 Last Admin: 02/08/19 17:35 Dose: 100 mcg Sodium Chloride (Ns) 500 mls @ 1,000 mls/hr IV EDNOW ONE PRN Reason: Protocol Stop: 02/08/19 17:11 Last Admin: 02/08/19 16:56 Dose: 500 mls Ketorolac Tromethamine (Toradol) 30 mg IVP EDNOW ONE Stop: 02/08/19 16:44 Last Admin: 02/08/19 16:57 Dose: 30 mg Ondansetron HCl (Zofran) 4 mg IVP EDNOW ONE Stop: 02/08/19 16:45 Last Admin: 02/08/19 16:56 Dose: 4 mg Point of Care Test Results: Chemistry 02/08/19 16:53 POC Troponin I 0.00 ng/mL ng/mL (0.00-0.08) Departure - Departure Disposition: Home, Routine, Self-Care Clinical Impression: Left shoulder pain Qualifiers: Chronicity: acute Qualified Code(s): M25.512 - Pain in left shoulder Chest pain Qualifiers: Chest pain type: other chest pain Qualified Code(s): R07.89 - Other chest pain Condition: Good Instructions: Shoulder Pain (ED), Cervical Spinal Stenosis (ED) Additional Instructions: Return with increasing pain, weakness, numbness, worsening chest pain, shortness of breath, fever or any other concerns. Referrals: Kirstin Tirado MD [Primary Care Provider] - 5-7 days, call for appt. Prescriptions: Cyclobenzaprine [Flexeril] 10 mg PO TID #15 tab oxyCODONE HCL [Oxycodone HCl] 5 mg PO Q4 #13 tablet predniSONE 20 mg PO DAILY 4 Days tab
[2019-02-08 17:10] LABS: PLATELET COUNT 167 10^3/uL (150-400)
[2019-02-08] MEDS ORDERED: IOPAMIDOL (ISOVUE 370) 100 ML BTL IV ONE (17:31)
[2019-02-08] MEDS ORDERED: fentaNYL 100 MCG/2 ML INJ ONE (17:32)
[2019-02-08 18:17] VITALS: BP 114/88
[2019-02-08] MEDS ORDERED: predniSONE 20 MG TAB PO ONE (18:42)
--- NOTE | 2019-02-08 23:12 | CPEKG ---
Test Reason : OPEN Blood Pressure : / mmHG Vent. Rate : 086 BPM Atrial Rate : 086 BPM P-R Int : 161 ms QRS Dur : 093 ms QT Int : 361 ms P-R-T Axes : 027 -65 020 degrees QTc Int : 432 ms Sinus rhythm LAD, consider left anterior fascicular block Confirmed by Gladys Avendano ([id number]) on 02/08/2019 11:12:25 PM Referred By: Gladys Avendano Confirmed By:Gladys Avendano
== END 2019-02-08 18:59 | disposition home or self-care (01) ==
DX: M25.512 Pain in left shoulder (principal); R07.89 Other chest pain
CPT/HCPCS: 71046; 71275; 72141; 93005; 96374; 96375; 96376; 99285; J1885; J2405; J3010; J7512; Q9967; 84484-ER; 86359-90; 86360-90; 87536-90

== ENCOUNTER → 2019-03-18 | Outpatient (CLI) | payer OTHER, MEDICAID | LOC: FIMAGING 10:48 | PROVIDERS: ATTEND Neurological Surgery | DX: M54.12 Radiculopathy, cervical region (principal); M48.02 Spinal stenosis, cervical region ==